=== PATIENT | female | born 1945 | race Caucasian/White ===

== ENCOUNTER → 2016-10-10 | Outpatient (CLI) | payer OTHER ==
[~2016-10-10] VITALS: Ht 160 cm; Wt 59.9 kg
[~2016-10-10] MED LIST: 5-HTP100 MG PO; ACIPHEX 20 MG T20 MG PO; ALPRAZOLAM 0.0.25 MG PO; ANALGESIC325 MG PO; ANASPAZ0.125 MG PO; ASPIRIN325 PO; ATIVAN0.5 MG PO; B COMPLEX-VITA1 EACH PO; BALANCED B-CO400 MCG PO; BENADRYL25 MG PO; BENTYL20 MG PO; BYSTOLIC 5 MG5 M1 PO; BYSTOLIC2.5 MG PO; CALCIUM 500 +1 EAC5 PO; CALCIUM500 MG PO; COQ-10100 MG PO; CRESTOR10 MG PO; CYMBALTA60 MG PO; DEPAKOTE250 MG; DILAUDID; DILAUDID 2 MG TA2 MG PO; DILAUDID2 MG PO; DIOVAN 80 MG TA80 M1 PO; DIOVAN160 MG PO; DIOVAN40 MG PO; FAMOTIDINE PO; FAMOTIDINE20 MG PO; FISH OIL 1,2001 EAC4 PO; FLAX SEED OIL1 EACH PO; FLEXERIL PO; FLONASE 0.05%50 MCG NASAL; FLUTICASONE; GABA PO; HYDRALAZINE 5050 M1 PO; HYDRALAZINE HC100 MG; HYDROCHLOROTH12.5 MG PO; HYDROCHLOROTHIA25 M2 PO; HYDROCHLOROTHIA50 MG PO; HYDROCODON-ACE1 EAC5 PO; HYDROCODON-ACE1 EAC8 PO; HYDROCODONE-AP1 EA11 PO; HYDROMORPHONE; HYSINGLA ER40 MG PO; IMITREX6 MG/0.5 M SQ; IMODIUM MULTI-1 EACH PO; INTRATHECAL MED; LEVAQUIN 750 M750 MG PO; LIDODERM; LIDODERM 5%1 PATC1 TRANSDERM; MEGA TAURINE1000 MG PO; METHIONINE; MULTI VITAMIN1 EACH; NORTRIPTYLINE H25 M3 PO; NORVASC5 MG PO; OMEGA 3-6-9 CO1 EACH PO; OMEGA-31000 M1 PO; ONDANSETRON HCL4 M2 PO; ONDANSETRON ODT4 MG PO; OXYCODONE-ACET1 EAC2 PO; OXYCODONE-ACET1 EACH PO; PAMELOR10 MG PO; PHENERGAN25 M2 RC; PLAVIX 75 MG TA75 M1 PO; PLAVIX PO; PREVALITE PACKE1 PKT PG; PROBIOTIC1 EAC2 PO; PROBIOTIC1 EACH PO; PROMETHAZINE12.5 M1 PO; PROTONIX40 M1 PO; RECLAST 55 MG/100 M IV; SAM E PO; SUMATRIPTA6 MG/0.53 SQ; TOPAMAX50 MG PO; TRAMADOL 50 MG50 MG PO; TRILIPIX135 MG PO; UBIQUINOL100 MG PO; UNICOMPLEX M TA1 TA1 PO; VAGIFEM10 MCG; VICOPROFEN 2001 EACH PO; VITAMIN B-121000 MC1 PO; VITAMIN D32000 UNIT PO; WELLBUTRIN 100100 M1 PO; XANAX 0.25 MG0.25 MG PO; XANAX XR1 MG PO; ZINC PICOLINATE PO; [UNRECOGNIZED DRUG - CODE] PO; curamin
--- NOTE | ~2016-10-10 | HPC ---
[facility] [place] [address] PAIN MANAGEMENT CONSULTATION Name: ANUM VICK Room #: REG [facility] M..#: [id number] Admission: 10/10/16 Attend Phys: Geoff Mcrae MD Discharge: Date of : 43 Report #: [id number] THIS REPORT FOR: //name// CC: Vivek Mcrae DATE OF SERVICE: 10/10/2016 Followup visit for chronic intractable pain. The patient returns to pain clinic today and she is having pain, I believe from several pain generators. She continues to have pain in her right hip, status post replacement of the hip. She is unhappy with the recovery and most of the pain in her hips seems to be soft tissue myofascial discomfort around the gluteal muscles in the area, lateral and anterior to the thigh and the calf or in the thigh. She has localized tenderness in a restricted motion. She also complains of pain in her back that radiates through her scar and also down into the same right hip. This pain radiates through the hip, thigh and into the calf and ankle may be radicular in nature. She has a third pain generator that of a fractured rib, which she sustained in a fall. She is a bit been stable here recently and is at fall risk. She has an intrathecal pump, which was providing a low dose of hydromorphone, maximum daily dose today prior to any changes was 1.2 mg per day. She does have a PTM device, which will allow her to increase slightly. Today, we discussed options for treatment. MEDICATIONS: Reviewed and reconciled from the electronic medical record. Her list is lengthy. Please review through the electronic record. ALLERGIES: Also reviewed on the electronic medical record from this encounter. PHYSICAL EXAMINATION: Her affect is a bit angry today. She is frustrated by her lack of progress following her hip surgery. She is able to move from sitting to standing position and ambulate with a stable gait. Her blood pressure is 152/90, heart rate 92, respirations 14, BMI is 23.4. Her chest is clear to auscultation and cardiac rhythm was regular. CHEST: Reveals tenderness along the right chest wall and tenderness of the ribcage posteriorly in lower rib, which appears to be slightly prominent. Part of this is due to dextrorotational curvature of the spine. She has tenderness all along the lengthy laminectomy scar. There is pain below and above. Straight leg raising in the seated position reproduces pain bilaterally in both legs, worse on the right. She has pain with movement of the right prosthetic hip with internal and external rotation. Weakness is noted with hip flexion and leg extension. Sensation is intact. [address] [address] PAIN MANAGEMENT CONSULTATION Name: ANUM VICK Room #: REG CARI Koch#: [id number] Admission: 10/10/16 Attend Phys: Geoff Mcrae MD Discharge: Date of : 43 Report #: [id number] IMPRESSION: Chronic intractable pain with multiple pain generators including right hip, low back, post-laminectomy syndrome with radiculopathy and right rib. PLAN: We have reviewed our options. At this time, I would like to increase her daily dose of hydrocodone which she tolerates well. She is currently taking roughly 30 mg a day, four 7.5 mg tablets. I would like her to try one of the long-acting hydrocodone preparations and recommended Hysingla ER 40 mg once daily. This has been an excellent medication for some of our patients who have been on round the clock scheduled doses of medication to help control pain. The prescription was provided and I told her that it may be difficult to get it covered by her insurance company and practically before I got to my desk, we received a notice back that the plan did not cover her medication and we needed to begin a prior authorization. This was initiated today before I left the office. I also increased her intrathecal infusion pump by roughly 6%. Her daily dose maximum will be 2.4 mg of hydromorphone including all PTM uses. We will follow up in about a month to see opioids helping. By: [id number] Geoff Mcrae MD /jamar
[2016-10-10 09:52] VITALS: BP 152/90
== END | disposition home or self-care (01) ==
LOC: PAIN 07:01
DX: G89.29 Other chronic pain (principal); M96.1 Postlaminectomy syndrome, not elsewhere classified

== ENCOUNTER → 2016-10-31 | Outpatient (CLI) | payer OTHER ==
[~2016-10-31] VITALS: Ht 160 cm; Wt 60.0 kg
--- NOTE | ~2016-10-31 | HPC ---
[facility] [place] [address] PAIN MANAGEMENT CONSULTATION Name: ANUM VICK Room #: REG [facility] M.Darshan.#: [id number] Admission: 10/31/16 Attend Phys: Geoff Mcrae MD Discharge: Date of : 43 Report #: [id number] THIS REPORT FOR: //name// CC: Vivek Mcrae DATE OF SERVICE: 10/31/2016 Followup visit for chronic intractable pain, refill of intrathecal infusion pump. The patient returns to pain clinic today for refill of her intrathecal infusion pump. She has been gaining some weight lately, but now we have discerned that it is the five 300-calorie candies per day that she has been eating from a special order out of [employer]. We discussed the importance of avoiding sugary foods. She has a severe gluten enteropathy. She ate salad dressing at a dinner recently and was hospitalized, developing severe abdominal pain. Treatment was symptomatic and it resolved and she was discharged with absent sequelae. She has ongoing chronic pain. Today, pain is described as right hip, although that is improving and she has pain across her mid to upper back. She says she has aches all over. Pain score is 5. It is worsened by walking and standing. MEDICATIONS: Cholecalciferol, Trilipix, Crestor, hydrocodone for breakthrough pain, calcium ondansetron, nortriptyline, cyclobenzaprine, valsartan, amlodipine, pantoprazole, lactobacillus, omega-3, multivitamins, Plavix, alprazolam, COQ10, p.r.n. Benadryl. PHYSICAL EXAMINATION: Pleasant, alert, and oriented. Weight is up. BMI is 23.4, blood pressure 142/86, heart rate 94. She has mid back tenderness, tenderness across her neck with decreased range of motion. Mild chest wall tenderness is noted. Pain in the hip is still present with flexion, extension, and internal rotation. PLAN: 1. Continue Hysingla 40 mg daily with breakthrough hydrocodone 7.5 mg 2-4 per day using lowest most effective dose. 2. Refilled intrathecal infusion pump, was reprogrammed. This is performed without complication. Her daily medication will be hydromorphone maximum of 2.4 mg a day with a total P.A. usage. Estimated NATALEE is 36 months. Her next refill is in [address] [place] [address] PAIN MANAGEMENT CONSULTATION Name: ANUM VICK Room #: REG CL August#: [id number] Admission: 10/31/16 Attend Phys: Geoff Mcrae MD Discharge: Date of : 43 Report #: [id number] Medications were prescribed. Terms of the opioid agreement were reviewed and she was discharged with a plan to see her in about 2 months. By: 1620 0000 Geoff Mcrae MD /jamar
[2016-10-31 12:48] VITALS: BP 142/86
== END | disposition home or self-care (01) ==
LOC: PAIN 07:15
DX: K90.0 Celiac disease (principal); Z87.891 Personal history of nicotine dependence

== ENCOUNTER → 2017-02-10 | Outpatient (CLI) | payer OTHER ==
[~2017-02-10] VITALS: Ht 160 cm; Wt 54.8 kg
[~2017-02-10] MED LIST changes: +XANAX1 MG PO
--- NOTE | ~2017-02-10 | HPC ---
[facility] [address] [place] [address] PAIN MANAGEMENT CONSULTATION Name: MALCOLMRAINAANUM ROQUE Room #: REG CARI Huizar.#: [id number] Admission: 02/10/17 Attend Phys: Geoff Mcrae MD Discharge: Date of : 43 Report #: [id number] THIS REPORT FOR: //name// CC: Vivek Mcrae DATE OF SERVICE: 02/10/2017 Followup visit for management of intrathecal infusion for chronic intractable abdominal pain. The patient returns to pain clinic today for refill of her intrathecal infusion pump. She is doing better. She has been in and out of the hospital this year, quite a bit for abdominal pain. Small section of bowel was resected. She has recovered from that surgery. Around the same time, I added to her intrathecal pump droperidol. She responded favorably to this and her nausea has been improved as well as pain control. I have slightly increased the droperidol in her pump for this infusion and will drop the dose of hydromorphone, so hopefully this will have an opioid sparing effect. She is here today with her . She reports that overall her pain intensity is better, but it various. Abdominal pain is less, although she has low back pain and overall aching and aching into her right hip. Today, she says she feels unsteady, but that is not a constant finding. Much of her pain is in the area of her hardware where it is locally tender. Oral medications have been reviewed and reconciled. We have tried Hysingla, but she would prefer instead use shorter acting medication which she can control. In place of the Hysingla 40 mg once a day, I will provide her with hydrocodone 7.5/325, #120, to be taken q. 6h. p.r.n. ADDITIONAL MEDICATIONS: Include pantoprazole, amlodipine, valsartan, lidocaine patches, calcium, nortriptyline, ondansetron p.r.n., alprazolam p.r.n. ALLERGIES: Reviewed and unchanged. PHYSICAL EXAMINATION: She is pleasant, alert and oriented. Does not appear to be in much distress today, her blood pressure 143/79, heart rate is 87. BMI is 21.4. Her abdomen is slightly tender. She moves easily from sitting to standing position. She ambulates without difficulty. She complains of pain across her low back and into her neck with flexion and extension. IMPRESSION: 1. Chronic intractable abdominal pain. 2. Diffuse skeletal pain generators including right hip, low back, post-laminectomy [place] [address] PAIN MANAGEMENT CONSULTATION Name: ANUM VICK Room #: REG [facility] August#: [id number] Admission: 02/10/17 Attend Phys: Geoff Mcrae MD Discharge: Date of : 43 Report #: [id number] 3. Management of oral high risk medication. 4. Management of intrathecal infusion pump with refill. PLAN: 1. I refilled her oral medication under terms of our agreement. 2. Refill of intrathecal infusion pump. PROCEDURE: Skin was prepped with ChloraPrep. Skin anesthetized and a 22-gauge non-coring needle advanced in the pump. Old medication removed and discarded. Pump was refilled with hydromorphone and droperidol. A reprogramming session performed. A 16% decrease in hydromorphone was achieved today to 1.1 mg/day, droperidol 27 mcg per day, a bridge bolus was programmed into the intrathecal pump. Her next refill is 88 days on 05/09/2017. Her NATALEE is 32 months. She was discharged with a copy of her programming information and a prescription. I will see her back in the clinic in roughly 3 months. Time spent with the patient in counseling and refill pump as well as prescribing medication 25 minutes. <ELECTRONICALLY SIGNED> By: Geoff Mcrae MD 02/13/17 1351 [id number] 0840 Geoff Mcrae MD /nt
[2017-02-10 10:08] VITALS: BP 143/79
== END ==
LOC: PAIN 07:00
DX: Z45.1 Encounter for adjustment and management of infusion pump (principal); R10.9 Unspecified abdominal pain; G89.29 Other chronic pain; M96.1 Postlaminectomy syndrome, not elsewhere classified; Z91.030 Bee allergy status; Z91.041 Radiographic dye allergy status; Z91.018 Allergy to other foods; Z91.013 Allergy to seafood; Z88.1 Allergy status to other antibiotic agents; Z91.048 Other nonmedicinal substance allergy status; Z79.891 Long term (current) use of opiate analgesic; Z87.891 Personal history of nicotine dependence; Z72.89 Other problems related to lifestyle

== ENCOUNTER → 2017-06-09 | Outpatient (CLI) | payer OTHER ==
[~2017-06-09] VITALS: Ht 160 cm; Wt 55.0 kg
[~2017-06-09] MED LIST changes: +CRESTOR20 MG PO
--- NOTE | ~2017-06-09 | HPC ---
[facility] [address] [place] [address] PAIN MANAGEMENT CONSULTATION Name: ANUM VICK Room #: REG [facility] M.Darshan.#: [id number] Admission: 06/09/17 Attend Phys: Geoff Mcrae MD Discharge: Date of : 43 Report #: [id number] THIS REPORT FOR: //name// CC: Vivek Mcrae DATE OF SERVICE: 06/09/2017 DATE OF REGISTRATION: 06/09/2017 Followup visit for management of chronic intractable pain and intrathecal infusion pump. She is here today for refill. The patient is here today for refill of her intrathecal infusion pump. She has had a number of different issues going on over the course of last year. Today, she reports that her pain is a 7. It is in her right leg, mostly with sharp, aching sensations, is worse in the morning, worse with standing. Intrathecal pump medication has been helpful. She does take some supplementary oral medications as well, which have been helpful from a systemic standpoint. She has had number of GI issues, so we are careful with those medicines. She uses hydrocodone 7.5 up to 4 times a day for a total MME of 30 per day. We discussed opioids, her opioid agreement, the opioid crisis, the CDC guidelines and the importance of safeguarding medication. The patient is not a fall risk. She has some osteoarthritis, which is noted throughout the spine and also in her joints, particularly right hip. She is status post hip replacement and is unhappy with replacement. She said she has continuing pain there. We discussed therapy at length. PHYSICAL EXAMINATION: She is little grumpy today, mostly complaining of her hip and feels that it was "botched." Her blood pressure is 119/72, heart rate 94. BMI is 21.5. She needs no counseling. She moves from a sitting to standing position on her own independently. She is not a fall risk. She has tenderness across her low back and also in her hip with internal and external rotation. She has weakness a bit in her right leg. IMPRESSION: 1. Chronic intractable pain with multiple skeletal pain generators and osteoarthritis. Status post right hip replacement with persistent pain. 2. Lumbar radiculopathy and post-laminectomy syndrome. 3. Chronic abdominal pain with nausea, intermittent. 4. Management of high risk oral medications under terms of an agreement. 5. Management of intrathecal infusion pump. PLAN: 1. Counseling was provided for 25 minutes today regarding the importance of [facility] [address] [place] [address] PAIN MANAGEMENT CONSULTATION Name: ANUM VICK Room #: REG CARI KiddSusy#: [id number] Admission: 06/09/17 Attend Phys: Geoff Mcrae MD Discharge: Date of : 43 Report #: [id number] exercise and strengthening for her right hip. I think this will help that pain. 2. We discussed her medications at length. 3. We reviewed other medications for treatment of side effects such as constipation. 4. Discussed her intrathecal pump management as well. 5. I refilled her intrathecal infusion pump. PROCEDURE: Skin was prepped with ChloraPrep. Skin anesthetized and a 22-gauge non-coring needle advanced in the pump. Old medication removed and discarded. Pump was refilled with hydromorphone, droperidol. Reprogramming session was performed. Daily dose will be at maximum with PTM, 1.5 mg of hydromorphone and 39 mcg per day with droperidol. Refill interval for the patient on this pump is about 52 days. Her next refill with maximum utilization will be some time in July. Usually it is about mid July. Total time spent 30 minutes. By: [id number] Geoff Mcrae MD /nt
[2017-06-09 10:00] VITALS: BP 119/72
== END | disposition home or self-care (01) ==
LOC: PAIN 07:05
DX: Z45.1 Encounter for adjustment and management of infusion pump (principal); G89.29 Other chronic pain; M54.16 Radiculopathy, lumbar region; M96.1 Postlaminectomy syndrome, not elsewhere classified; M47.9 Spondylosis, unspecified

== ENCOUNTER → 2017-08-13 | Outpatient (CLI) | payer OTHER ==
[~2017-08-13] VITALS: Ht 160 cm; Wt 52.9 kg
[~2017-08-13] MED LIST changes: +ANTIVERT25 MG; +INTRAROSA6.5 MG VAG; +IRBESARTAN150 MG PO; +METOPROLOL SUCC50 MG PO; +MYSOLINE50 MG PO; +PRESERVISION T1 EACH PO; +PROBIOTIC1 EAC1 PO; +PROZAC10 MG PO; +SAM-E400 MG PO; +STIOLTO RESPIMAT4 GM
--- NOTE | ~2017-08-13 | HPC ---
[facility] [address] [place] [address] PAIN MANAGEMENT CONSULTATION Name: NAVAVEENAJustin Fox Room #: REG [facility] M.Darshan.#: [id number] Admission: 08/13/17 Attend Phys: Geoff Mcrae MD Discharge: Date of : 43 Report #: [id number] THIS REPORT FOR: //name// CC: Vivek Mcrae DATE OF SERVICE: 08/13/2017 REASON FOR VISIT: Followup visit for chronic pain. HISTORY OF PRESENT ILLNESS: The patient returns to the pain clinic today for refill of intrathecal infusion pump as well as renewal of oral medication, which she takes in supplement. As the visit turns out, we still have about 3 weeks left in her Intrathecal pump refill and 9 mL remaining in her 20 mL pump. Her medication is good for another month and a half. I have rescheduled her to come back in the middle of August for refill and we will not refill her pump today. This will actually work out very well. She has an upcoming trip planned for [facility] and the refill date that will be upcoming. We will allow her to be gone without will have to worrying about her intrathecal pump refill. She felt that she did not have another refill on her breakthrough medication. I provided with hydrocodone 7.5/325 tablets, which she can use for breakthrough. She uses between 2 and 4 tablets a day, oftentimes up to 4 when the weather is bad. Much of this, she uses for her hip replacement pain, which has been persistent and has not been helped by intrathecal infusion pump. As we noted today, she has 1 more refill and she does need another refill today. I have reviewed her PQRS review today and she does have osteoarthritis of the lower extremities including hips and knees. She has had operative treatment. Her BMI is 20.7 normal for her. Her vital signs are stable. She has a mild diastolic hypertension and is followed by Dr. Vivek Powell. Pain intensity is a 5 today. She has a fall risk and has fallen in the last 3 months. She occasionally uses a cane and she was cautioned today. She is on a blood thinner, Plavix which makes falling and the fall risk even more concerning. Her functional assessment tool was not performed today but has been at the most recent visit. Opioid risk tool was reviewed. She is at moderate risk at 7/10, so we keep a close eye on her medications. She continues to drink alcohol a bit each day. She is a former smoker and can stop that habit. IMPRESSION: Chronic intractable pain with multiple pain generators. She suffers from a post total hip replacement syndrome with persistent pain there. She has lumbar radiculopathy, post-laminectomy. She has chronic abdominal pain [address] [address] PAIN MANAGEMENT CONSULTATION Name: ANUM VICK Room #: REG [facility] August#: [id number] Admission: 08/13/17 Attend Phys: Geoff Mcrae MD Discharge: Date of : 43 Report #: [id number] with nausea, which is intermittent. She has been managed by high risk medications under terms of written opioid agreement and an intrathecal infusion pump. PLAN: To follow up in the pain clinic in about 3 weeks and we will take care of her medication as well as refill of intrathecal infusion pump at that time. <ELECTRONICALLY SIGNED> By: Geoff Mcrae MD 08/20/17 1640 1529 04 Geoff Mcrae MD /nt
[2017-08-13 13:50] VITALS: BP 146/90
== END ==
LOC: PAIN 09:31
DX: G89.29 Other chronic pain (principal); M54.16 Radiculopathy, lumbar region; M96.1 Postlaminectomy syndrome, not elsewhere classified; R10.9 Unspecified abdominal pain; Z96.643 Presence of artificial hip joint, bilateral

== ENCOUNTER → 2017-08-25 | Outpatient (CLI) | payer OTHER | LOC: NUC 07:08 | DX: I25.10 Atherosclerotic heart disease of native coronary artery without angina pectoris (principal); R53.83 Other fatigue; I10 Essential (primary) hypertension; E78.5 Hyperlipidemia, unspecified; Z72.0 Tobacco use ==

== ENCOUNTER → 2017-09-01 | Outpatient (CLI) | payer OTHER ==
[~2017-09-01] VITALS: Ht 160 cm; Wt 52.4 kg
--- NOTE | ~2017-09-01 | HPC ---
[facility] [place] [address] PAIN MANAGEMENT CONSULTATION Name: MALCOLMRAINAANUM ROQUE Room #: REG CARI Huizar.#: [id number] Admission: 09/01/17 Attend Phys: Geoff Mcrae MD Discharge: Date of : 43 Report #: [id number] THIS REPORT FOR: //name// CC: Vivek Mcrae DATE OF SERVICE: 09/01/2017 Followup visit for management of chronic intractable cervical pain, osteoarthritis, status post hip replacement with persistent pain. The patient returns to pain clinic today for followup. Her intrathecal pump is infusing hydromorphone low dose with droperidol. She has done well, but would like to have small increase. I have agreed to increase her daily dose by about 8%. She has a PTM device uses as well. In addition to her intrathecal medication which were managing carefully, she has found that she benefits from a supplemental dose of a small amount of hydrocodone which I provide for her under terms of our written opioid agreement. She is allowed 90 tablets over a course of 1 month. She takes them effectively without side effects to safeguard her medication and recent urine drug screens have been performed. I will repeat a buccal screen today as it has been some time. I have no suspicion that she is misusing or abusing her medication. She has always been on time with her medication. She and her travel extensively and have the means to do so. She will be traveling first class to [facility] soon. Unfortunately, she will be leaving before her due date for her next prescription and would run out of her oral medication while on trip. I have agreed to provide a medication release date earlier and have notified the pharmacist on the prescription that she will be receiving her medication in schedule but early for her due to her flight plans. PHYSICAL EXAMINATION: She is pleasant, alert and oriented. She shows no signs of depression, anxiety or overmedication. She is 5 feet 3 inches with a BMI of 20.5. Her chest is clear. Her abdomen is soft. Her cardiac rhythm is regular. Her vital signs: Blood pressure 113/68, heart rate 85, respirations 16. She has decreased range of motion of the cervical spine. The patient's pain intensity today is a 5/10. She is a fall risk and has fallen once in the last 3 months and occasionally uses a cane. She needs to be cautious due to her use of Plavix. She is also under treatment for hypertension. I have reviewed our opioid agreement risk assessment tool and functional assessment tool. She is at some risk for abuse with a score of 8/10[place] [address] PAIN MANAGEMENT CONSULTATION Name: MALCOLMDILIAANUM Room #: REG [facility] August#: [id number] Admission: 09/01/17 Attend Phys: Geoff Mcrae MD Discharge: Date of : 43 Report #: [id number] Should note that her pain impact score is down to 29 and she reports an 85% improvement in her pain overall since beginning the combination of intrathecal and oral therapies. IMPRESSION: Chronic intractable pain with multiple pain generators including neck pain, status post cervical fusion and hip pain status post replacement. She has lumbar radiculopathy as well. She has had a chronic abdominal pain and nausea, which has been well managed recently. No hospitalizations. PLAN: Refill intrathecal infusion pump and refill new medication under terms of our written opioid agreement. We talked about the CDC guidelines and the opioid crisis today as we have over the last year or 2, so that she understands the importance of safeguarding all her medication. PROCEDURE: She was placed in sitting position. Skin was prepped with ChloraPrep. Skin anesthetized and a 22-gauge non-coring needle advanced into the pump. Old medication was removed and discarded. Volumes were appropriate. Pump was refilled with a combination of hydromorphone and droperidol and a daily dose was increased from 1.1 mg of hydromorphone per day to 1.2. Her PTM was also reprogrammed. Total time in the office 25 minutes. Her next refill date is 10/23/2017 with all PTM options, but generally, this is about a month later. I plan to see her towards the end of October or early November. <ELECTRONICALLY SIGNED> By: Geoff Mcrae MD 09/29/17 1408 1313 1518 Geoff Mcrae MD /nt
[2017-09-01 09:45] VITALS: BP 113/68
== END | disposition home or self-care (01) ==
LOC: PAIN 07:13
DX: Z45.2 Encounter for adjustment and management of vascular access device (principal); G89.29 Other chronic pain; M54.16 Radiculopathy, lumbar region; Z87.891 Personal history of nicotine dependence

== ENCOUNTER → 2017-12-01 | Outpatient (CLI) | payer OTHER ==
[~2017-12-01] VITALS: Ht 160 cm; Wt 50.1 kg
[~2017-12-01] MED LIST changes: -INTRAROSA6.5 MG VAG; -IRBESARTAN150 MG PO; -PRESERVISION T1 EACH PO; -PROBIOTIC1 EAC1 PO; -PROZAC10 MG PO; -STIOLTO RESPIMAT4 GM
--- NOTE | ~2017-12-01 | HPC ---
[facility] [place] [address] PAIN MANAGEMENT CONSULTATION Name: NAVAANUM Room #: REG CARI Huizar.#: [id number] Admission: 12/01/17 Attend Phys: Geoff Mcrae MD Discharge: Date of : 43 Report #: [id number] THIS REPORT FOR: //name// CC: Vivek Mcrae DATE OF SERVICE: 12/01/2017 Followup visit for chronic intractable pain and management of intrathecal infusion pump. The patient returns to pain clinic today for renewal of her intrathecal pump medication. She complains of pain in the neck, back and hip. She had a hip replacement, but has had some persistent post arthroplasty oftentimes questioning whether she should have performed the procedure. I reassured her that her arthritic hip would have likely progressed to what have been worse. She describes her pain today as a 7/10, worse with walking and standing, it is worse in the morning and the hip is generally worse after activities as well. She has midline pain in her thoracic spine, roughly T4-T6 in the bra line, this is fairly stable. In addition to medication, she uses heat and repositioning to aid her pain control efforts. She and her , Guido have a trip planned to [place] in February and we talked a little bit about the timing of her next refill so that she will not have to worry about running out of medication on that trip in early February. Her pump is infusing hydromorphone and droperidol. She still has a bit of nausea and I have agreed that I will increase her droperidol at the next refill. PQRS review shows that she has some history of osteoarthritis, particularly of the lower extremities having had a total hip replacement. No other joints are quite so painful. She has a BMI of 19.6, which is normal for her. She is treated for hypertension with medication by Dr. Powell and is on Plavix. She is not a fall risk at this time and has not fallen within the last 3 months. She has completed an opioid risk tool and is at high risk, but has shown no misuse or abuse of the oral medications provided. She is an ex-smoker and continues to drink vodka daily. PHYSICAL EXAMINATION: GENERAL: Pleasant, alert and oriented. VITAL SIGNS: Blood pressure 135/67, heart rate 82, respirations 14, BMI as noted 19.6. EXTREMITIES: She has some tenderness about her neck. She has pain in the right [facility] [address] [place] [address] PAIN MANAGEMENT CONSULTATION Name: ANUM VICK Room #: REG [facility]#: [id number] Admission: 12/01/17 Attend Phys: Geoff Mcrae MD Discharge: Date of : 43 Report #: [id number] hip with internal and external rotation. She walks with a slight antalgic gait. She has positive straight leg raising bilaterally in the lower extremities with consistent radiculopathy. Tenderness in the thoracic spine is noted as well. Lumbar range of motion is reduced in flexion and extension. IMPRESSION: 1. Chronic intractable pain with multiple pain generators including chronic cervicalgia, status post fusion, osteoarthritis with pain in the right hip, status post replacement, history of lumbar spondylosis with lumbar radiculopathy and chronic abdominal pain. 2. Management of intrathecal infusion pump with refill and reprogram. 3. Management of oral medication for supplement. She uses a small amount of [place], generally not more than 20 morphine milligram equivalents a day or 2-3 [place] 7.5/325 tablets. PROCEDURE: Refill and reprogramming of intrathecal infusion pump. DESCRIPTION OF PROCEDURE: Skin was prepped with ChloraPrep and anesthetized. A 22-gauge non-coring needle advanced in the intrathecal pump. Old medication removed and discarded. We expected 3.1 mL. We retrieved about 3.5 consistent with reasonable delivery. Pump was refilled then with a combination of hydromorphone and droperidol. Reprogramming session was performed with no changes. She has a PTM device. Maximum daily doses with the PTM if she uses all of her available doses are hydromorphone 2.6 and droperidol 67 mcg per day. Followup visit is planned in late January prior to her trip to [facility]. I will increase her droperidol by roughly 15% at the next pump refill. By: [id number] Geoff Mcrae MD /nt
[2017-12-01 09:52] VITALS: BP 135/67
== END ==
LOC: PAIN 11-13 08:39
DX: Z45.1 Encounter for adjustment and management of infusion pump (principal); M16.11 Unilateral primary osteoarthritis, right hip; M54.2 Cervicalgia; G89.29 Other chronic pain; M47.26 Other spondylosis with radiculopathy, lumbar region; I10 Essential (primary) hypertension; I25.10 Atherosclerotic heart disease of native coronary artery without angina pectoris; R10.9 Unspecified abdominal pain; Z87.891 Personal history of nicotine dependence; Z91.041 Radiographic dye allergy status; Z88.8 Allergy status to other drugs, medicaments and biological substances; Z79.891 Long term (current) use of opiate analgesic; Z98.890 Other specified postprocedural states; Z96.641 Presence of right artificial hip joint

== ENCOUNTER → 2018-02-05 | Outpatient (CLI) | payer OTHER ==
[~2018-02-05] VITALS: Ht 160 cm; Wt 50.6 kg
[~2018-02-05] MED LIST changes: +INTRAROSA6.5 MG VAG; +IRBESARTAN150 MG PO; +PRESERVISION T1 EACH PO; +STIOLTO RESPIMAT4 GM
--- NOTE | ~2018-02-05 | HPC ---
[facility] [address] [place] [address] PAIN MANAGEMENT CONSULTATION Name: ANUM VICK Room #: REG [facility] M..#: [id number] Admission: 02/05/18 Attend Phys: Geoff Mcrae MD Discharge: Date of : 43 Report #: [id number] THIS REPORT FOR: //name// CC: Vivek Mcrae DATE OF SERVICE: 02/05/2018 REASON FOR VISIT: Followup visit for management of intrathecal infusion pump for chronic pain. HISTORY OF PRESENT ILLNESS: The patient returns to the Pain Clinic today for refill of her pump. We have decided to postpone the pump refill 1 week. She has enough medications to get her through until a week from tomorrow. We took the opportunity to review her medications. She has had medication prescribed in previous visits and has one prescription remaining at home. She has been using less [place] for breakthrough, taking no more than 2-3 tablets a day, many days 2. We will modify her prescription downward, we find that she is using less. She has an upcoming trip coming [place] with her and we want to make sure that we time her pump refill appropriately so that she does not run out of medications on a trip, both oral and intrathecal. She is doing well, grateful for the relief she gets from both her medication, oral and the intrathecal pump. She is able to provide for all of her self-care. She can drive a car without difficulty. She denies any side effects other than mild constipation. PQRS REVIEWS: Slender female with a BMI of 19.8, blood pressure 116/66, heart rate 82, respirations 14. Her pain intensity of 5/10. She has fallen once in the last several months, but does not need a cane or a walker. She would be considered fall risk and this is concerning since she is on Plavix. She has a history of hypertension. An opioid risk tool score showing that she has at high risks of misuse of medications, so we keep a closer eye on her medications. Her ORT score was 8. She has had no red flag behaviors. We have reviewed her medication prescriptions on the [place] [employer] PDMP and all medications are appropriate regarding oral medications. She is now on hydrocodone 7.5/325 and as noted, she is taking less than prescribed, so this suggests the intrathecal pump is working well. PHYSICAL EXAMINATION: GENERAL: She is pleasant, alert and oriented, without any signs of overmedication. [facility] [address] [place] [address] PAIN MANAGEMENT CONSULTATION Name: ANUM VICK Room #: REG [facility]#: [id number] Admission: 02/05/18 Attend Phys: Geoff Mcrae MD Discharge: Date of : 43 Report #: [id number] MUSCULOSKELETAL: She has pain across her back and tenderness in the lumbosacral segment. There is some straight leg raising discomfort. She has some limited range of motion in her cervical spine from previous neck surgery. IMPRESSION: Chronic intractable pain. RECOMMENDATIONS: 1. Return to the Pain Clinic in 1 week for refill of intrathecal pump. 2. Go home and look for medication. A prescription, which she believes that she may have misplaced. We did receive a phone call from her after she returned home and located in her next prescription. We will score up of her prescriptions for 3 months at her next visit. By: [id number] Geoff Mcrae MD /nt
[2018-02-05 10:33] VITALS: BP 116/66
== END ==
LOC: PAIN 07:15
DX: M54.5 Low back pain (principal); G89.4 Chronic pain syndrome; Z79.899 Other long term (current) drug therapy

== ENCOUNTER → 2018-02-12 | Outpatient (CLI) | payer OTHER ==
[~2018-02-12] VITALS: Ht 160 cm; Wt 52.3 kg
--- NOTE | ~2018-02-12 | HPC ---
[facility] [place] [address] [place] [address] PAIN MANAGEMENT CONSULTATION Name: ANUM VICK Room #: REG [facility]..#: [id number] Admission: 02/12/18 Attend Phys: Geoff Mcrae MD Discharge: Date of : 43 Report #: [id number] THIS REPORT FOR: //name// CC: Vivek Mcrae DATE OF SERVICE: 02/12/2018 Followup visit for management of intrathecal infusion pump. The patient returns to clinic today. She was last seen just a week ago on 02/05/2018. We had her postpone her pump refill so that we could utilize the additional medicine that was remaining in her pump and she is now down to 3.5 mL. This will give her a longer period between refills and we will ensure that she can get to her overseas trip and back. I also will renew her medications that she takes to supplement her pump today under her written opioid agreement. She reports there have been no significant changes in the last week. Please refer to the dictation of 02/05/2018. IMPRESSION: Chronic intractable pain with multiple pain generators; these include cervicalgia status post fusion, osteoarthritis in the right hip, status post replacement, chronic lumbar spondylosis pain with backache and radiculopathy. Management of intrathecal infusion pump. Oral medication renewal. I provided with [place] 7.5/325, 90 tablets, which generally will last her at least a full month, her MME between 20 and 30. PROCEDURE: Skin was prepped with ChloraPrep. Skin anesthetized and a 22-gauge non-coring needle advanced in the pump. Old medication removed and discarded. Pump was refilled with hydromorphone and droperidol. We increased the droperidol dose by roughly 20% in the recipe. We have also elected to slightly increase her overall infusion. Thus, we will increase her droperidol from about 30 mcg per day to 43 mcg per day and her Dilaudid from 1.2 mg a day to 1.4 mg per day. Refill date if she uses all of her PTM opportunities will be around 04/04/2018. Typically, this goes out at least a week. She understands this and we will keep track of it with the dates that are available on the PTM device. I wished her good vacation. She was discharged and I will see her in March. By: [id number] Geoff Mcrae MD /nt
[2018-02-12 09:46] VITALS: BP 150/78
== END | disposition home or self-care (01) ==
LOC: PAIN 07:25
DX: Z45.1 Encounter for adjustment and management of infusion pump (principal); G89.29 Other chronic pain; M54.2 Cervicalgia; M16.11 Unilateral primary osteoarthritis, right hip; M47.26 Other spondylosis with radiculopathy, lumbar region; I10 Essential (primary) hypertension; I25.10 Atherosclerotic heart disease of native coronary artery without angina pectoris; Z87.891 Personal history of nicotine dependence; Z91.041 Radiographic dye allergy status; Z88.8 Allergy status to other drugs, medicaments and biological substances; Z79.899 Other long term (current) drug therapy; Z79.891 Long term (current) use of opiate analgesic; Z98.890 Other specified postprocedural states

== ENCOUNTER → 2018-04-27 | Outpatient (CLI) | payer OTHER ==
[~2018-04-27] VITALS: Ht 160 cm; Wt 51.3 kg
[~2018-04-27] MED LIST changes: +PROBIOTIC1 EAC1 PO; +PROZAC10 MG PO
--- NOTE | ~2018-04-27 | HPC ---
[facility] [place] [address] PAIN MANAGEMENT CONSULTATION Name: ANUM VICK Room #: REG [facility] M.R.#: [id number] Admission: 04/27/18 Attend Phys: Geoff Mcrae MD Discharge: Date of : 43 Report #: [id number] THIS REPORT FOR: //name// CC: Vivek Mcrae DATE OF SERVICE: 04/27/2018 Followup visit for chronic post-laminectomy syndrome and management of intrathecal infusion pump. The patient returns to pain clinic today for refill and reprogramming of her intrathecal infusion pump. She is doing well. In addition to her intrathecal pump, we have provided her with some systemic opioid medication, but she brought back her last prescription because she did not use it. She is using 1-2 hydrocodone 7.5 three tablets a day if necessary. Her maximum daily oral hydrocodone use is about 15 mg or 15 MME. Overall, she feels that her pain medication is adequate in the pump. She will need a new pump sometime within the next 2 years. Remarkable, this will be her third pump. The medication has worked fairly effectively to keep her active without significant side effects. She is a longstanding patient with chronic pain, complaining of pain in multiple locations including a right hip, status post hip replacement, chronic low back pain status post laminectomy, pain between the shoulders and neck. She scores it as 7/10, exacerbated with walking and standing. She has been able to remain fairly active. MEDICATIONS: Reviewed and reconciled. She is on no blood thinning medications. She is on medication for blood pressure control and follows closely with Dr. Powell. All of her medications are prescribed by Dr. Powell except those in the pump as well as her low dose hydrocodone. She is not currently a fall risk and has not fallen in the last 3 months. She continues to drink alcohol in a social setting with her , but is no longer a smoker. She is on Plavix for history of vasculopathy including the right renal artery stent placement. She follows with Dr. Walsh. She has sleep apnea and uses CPAP machine at night. Her chronic abdominal pain syndrome with celiac disease has been stable for some time. PHYSICAL EXAMINATION: VITAL SIGNS: Her blood pressure 137/74, heart rate 81. BMI is 20.10. GENERAL: She is alert, oriented, pleasant, no signs of depression or anxiety. MUSCULOSKELETAL: Examination of the spine reveals localized tenderness. She has a mild antalgic gait. She is well dressed today and walks down the [facility] [address] [place] [address] PAIN MANAGEMENT CONSULTATION Name: ANUM VICK Room #: [facility]#: [id number] Admission: 04/27/18 Attend Phys: Geoff Mcrae MD Discharge: Date of : 43 Report #: [id number] with minimal discomfort. She has some limited range of motion of the lumbar spine. Straight leg raising bilaterally is painful. She has ongoing or remaining tenderness around the hip replaced in 2017. IMPRESSION: 1. Chronic intractable pain with multiple pain generators. 2. Management of intrathecal infusion pump with refill and reprogramming session. PROCEDURE: Skin was prepped with ChloraPrep and anesthetized. A 22-gauge non-coring needle advanced in the pump. Old medication removed and discarded. Pump was then refilled with a combination of hydromorphone and droperidol and a reprogramming session was performed. Her daily dose at discharge per pump settings is hydromorphone 1.4 mg per day and droperidol 43.78 mcg per day. Maximum PTM will allow her to increase this by 100%. Her NATALEE is 10/2019 and her next scheduled refill is 06/15, but with PTM she should be able to push this into early June. I will see her back at that time. Under terms of our written agreement, I provided her with hydrocodone 7.5/325, #60 tablets with 2 release date prescriptions, one for 30 days, which should carry her through to her next appointment. Followup visit planned in June. By: [id number] Geoff Mcrae MD /nt
[2018-04-27 13:36] VITALS: BP 137/74
== END | disposition home or self-care (01) ==
LOC: PAIN 06:58
DX: Z45.1 Encounter for adjustment and management of infusion pump (principal); M96.1 Postlaminectomy syndrome, not elsewhere classified; G89.29 Other chronic pain; I10 Essential (primary) hypertension; I25.10 Atherosclerotic heart disease of native coronary artery without angina pectoris; Z88.8 Allergy status to other drugs, medicaments and biological substances; G47.33 Obstructive sleep apnea (adult) (pediatric); Z91.041 Radiographic dye allergy status; Z87.891 Personal history of nicotine dependence; Z79.891 Long term (current) use of opiate analgesic; Z79.899 Other long term (current) drug therapy; Z98.890 Other specified postprocedural states

== ENCOUNTER → 2018-06-29 | Outpatient (CLI) | payer OTHER ==
[~2018-06-29] VITALS: Ht 160 cm; Wt 51.7 kg
--- NOTE | ~2018-06-29 | HPC ---
[facility] [place] [address] PAIN MANAGEMENT CONSULTATION Name: MALCOLMRAINAANUM ROQUE Room #: REG [facility] M.Darshan.#: [id number] Admission: 06/29/18 Attend Phys: Geoff Mcrae MD Discharge: Date of : 43 Report #: [id number] THIS REPORT FOR: //name// CC: SOUMYA Mcrae DATE OF SERVICE: 06/29/2018 Followup visit for chronic low back pain and right hip pain status post right hip replacement. There patient was here today for pain management and refill of her intrathecal infusion pump. She and her , Gregory, have an upcoming trip planned and they travel frequently. I believe she said that she was leaving for [facility] on this trip and will be gone for 1 week. Her intrathecal infusion pump contains hydromorphone and droperidol, which has worked effectively. Her daily dose of hydromorphone is 1.4 mg per day. She has a PTM bolus device that she has been trying to use, but she reports that it is only providing 1 additional dose per day well under the 4 that were to have been allowed. This was a programming issue and did not involve the device itself. Nonetheless, we replaced her device and we reprogramed for the appropriate 4 additional bolus doses, which will increase her dose by 40% per day if necessary. In addition to her intrathecal medication, which works fairly well, she is allowed hydrocodone 7.5/325 to supplement the pump when systemic medication is necessary. It provides relaxing sedating effect in addition and seems to be of benefit, particularly during evening hours. PQRS REVIEW: 1. She has a history of osteoarthritis and has had a right hip replacement, continuing to complain of some pain despite long recovery. She likely has a chronic syndrome. 2. Weight is currently well controlled and she has not had problems with abdominal pain or nausea. BMI 20.2. 3. Pain intensity reported as 6/10. She is functioning highly within a functional assessment tool of 35/70. 4. She is not a fall risk, but she has had some lightheadedness and did fall once in the last 3 months. She should be cautious getting up and down due to risks of fall with Plavix. 5. She is on an opioid agreement, which has been reviewed at each visit. We discussed her the important aspects, particularly safeguarding medication. She no longer smokes, but drinks alcohol in a social setting. She was cautioned about combination of opioids and alcohol. [facility] [address] [place] [address] PAIN MANAGEMENT CONSULTATION Name: ANUM VICK Room #: REG [facility]#: [id number] Admission: 06/29/18 Attend Phys: Geoff Mcrae MD Discharge: Date of : 43 Report #: [id number] PHYSICAL EXAMINATION: Blood pressure 168/87, heart rate 94, respirations 16. She is pleasant, alert and oriented. No signs of overmedication. She can move easily from sitting to standing position with no lightheadedness or dizziness and her gait is slow, but stable. She has limited range of motion of the lumbar spine with tenderness along her scar. She has some straight leg raising tenderness and discomfort, but mostly it actually is in the hip from her previous hip replacement, which remains painful. IMPRESSION: 1. Chronic intractable pain, post-laminectomy syndrome. 2. Chronic hip pain status post total hip replacement. 3. Management of chronic opioids under terms of written agreement. Her use is modest and her MME is maximum of 15 per day. 4. Refill and reprogramming of intrathecal infusion pump. PROCEDURE: Skin was prepped with ChloraPrep and a 22-gauge non-coring needle advanced at first attempt into the pump. Old medication removed and discarded per protocol and the pump was refilled with hydromorphone, droperidol. Reprogramming session performed and I increased her basal rate in the absence of her PTM to 1.8 mg day, 28.5 basal rate increase. This is similar to the amount that she was using with her PTM. Her NATALEE is 70 months and she will need a new pump at that time. Next refill is scheduled before 08/22/2018. By: [id number] Geoff Mcrae MD /jamar
[2018-06-29 13:26] VITALS: BP 168/87
--- NOTE | 2018-06-29 13:41 | NUR ---
Pain Clinic Assessment: 1. History of Osteoarthritis: Right Lower Extremity History of Rheumatoid Arthritis: Not Applicable 2. Height: 5 ft. 3 in. 160.0 cm. Weight: 114.0 lb. oz. 51.710 kg. Patient's BMI: 20.2 3. Vital Signs: BP: 168/87 Pulse: 94 Resp: 16 Temp: 02 Sat: 99 ECG Mon: 4. Pain Intensity: 6 5. Fall Risk: Dizziness: Y Needs help standing or walking: N Fallen in the last 3 months: Y Fall risk comments: 6. Patient on Blood Thinner: Clopidogrel Bisulf(Plavix 7. History of Hypertension: Y 8. Opioid Therapy greater than 6 weeks: Y Opiate Contract Signed: 12/04/15 9. Risk Assessment Tool Provided: 8-high risk 10. Functional Assessment Tool: 11. Recreational Drug Use: Never Drug Type: Tobacco Use: Former Smoker Tobacco Type: Amount or Packs/day: How Many Years: Alcohol Use: Yes Frequency: Quant:
== END | disposition home or self-care (01) ==
LOC: PAIN 07:39
DX: Z45.1 Encounter for adjustment and management of infusion pump (principal); G89.29 Other chronic pain; I10 Essential (primary) hypertension; I25.10 Atherosclerotic heart disease of native coronary artery without angina pectoris; Z91.041 Radiographic dye allergy status; Z87.891 Personal history of nicotine dependence; Z88.8 Allergy status to other drugs, medicaments and biological substances; Z79.899 Other long term (current) drug therapy; Z98.890 Other specified postprocedural states; Z79.891 Long term (current) use of opiate analgesic

== ENCOUNTER → 2018-08-31 | Outpatient (CLI) | payer OTHER ==
[~2018-08-31] VITALS: Ht 160 cm; Wt 51.2 kg
[~2018-08-31] MED LIST changes: +NEURONTIN 300300 M1 PO
--- NOTE | ~2018-08-31 | HPC ---
[facility] [place] [address] PAIN MANAGEMENT CONSULTATION Name: ANUM VICK Room #: REG [facility] M.Darshan.#: [id number] Admission: 08/31/18 ������������������ Attend Phys: Geoff Mcrae MD Discharge: ������������������ Date of : 43 Report #: [id number] THIS REPORT FOR: //name// CC: Jeffy Mcrae DATE OF SERVICE: 08/31/2018 Followup visit for chronic intractable pain with intrathecal infusion pump management. The patient returns to the pain clinic today with her , Gregory. She is here today for refill of her intrathecal pump and small adjustment. She was hospitalized in June. She has made some progress over the course of the last month. She is getting a bit stronger and is doing physical therapy. She had a fall on 07/13. She suffered a left hip fracture and high femur fracture. Today, she reports her pain score is a 6/10. It is made worse with walking and standing and generally is worse in the morning. She gets relief from her medication. Her intrathecal pump repositioning and has been using some heat. PQRS review is positive for history of osteoarthritis. She has had a left hip replacement and has had changes of spondylosis throughout the cervical and lumbar spine. All medications were reviewed and reconciled including those prescribed by Dr. oPwell and myself. She is on an opioid agreement. There have been no unexpected entries on the prescription drug monitoring program, although she did receive recently prescription from Dr. Powell when I was unable to provide that for her. I described the agreement is an open one as long as communication is made between primary care physician and provider of chronic medication. We have noted in the record his prescription and does not constitute a violation. She has a risk assessment tool, however, that score is at 8/10, which is a relative high risk for addiction, and we must be careful and cautious in prescribing going forward. She continues to drink alcohol, which may have played a role in her fall. She is a former smoker. PHYSICAL EXAMINATION: She is pleasant. Her color is good. Blood pressure is 155/91, heart rate 76, respirations 14, O2 sat 97, BMI 20. She moves independently from sitting to standing position, ambulates with unsteady gait. CHEST: Clear. CARDIAC: Rhythm is regular. EXTREMITIES: Her left hip is tender to the touch, and she has decreased range of motion. IMPRESSION: [facility] [address] [place] [address] PAIN MANAGEMENT CONSULTATION Name: ANUM VICK Room #: REG [facility]#: [id number] Admission: 08/31/18 ������������������ Attend Phys: Geoff Mcrae MD Discharge: ������������������ Date of : 43 Report #: [id number] 1. Chronic intractable pain with multiple pain generators. 2. Recent fall with hip fracture. 3. Management of intrathecal infusion pump with refill and reprogramming. 4. Management of high risk medications. PROCEDURE: Skin was prepped with ChloraPrep and anesthetized. A 22-gauge non-coring needle advanced into the intrathecal pump. Old medication removed and discarded. Pump was refilled with hydromorphone and droperidol. Daily dose will be hydromorphone 2.0 mg, droperidol 62 mcg. Reprogramming session has her next refill at 10/16/2018. I did increase her dose today by 10%. She has a PTM device that will allow her 4 additional doses per day, which she will use as needed in addition to her oral medication. We reviewed our opioid agreement. She will safeguard her medications and use her oral medication only as needed. Hopefully, dropping her hydrocodone usage over the next month as she slowly weans herself back down to baseline levels. A second prescription was written for next month at a lower level. ��������������������������������������������� ���������������������������������������� By: ��������������������������������������������� [id number] Geoff Mcrae MD /nt
[2018-08-31 09:51] VITALS: BP 155/91
--- NOTE | 2018-08-31 10:01 | NUR ---
Pain Clinic Assessment: 1. History of Osteoarthritis: Right Lower Extremity History of Rheumatoid Arthritis: Not Applicable 2. Height: 5 ft. 3 in. 160.0 cm. Weight: 112.8 lb. oz. 51.166 kg. Patient's BMI: 20.0 3. Vital Signs: BP: 155/91 Pulse: 76 Resp: 14 Temp: 02 Sat: 97 ECG Mon: 4. Pain Intensity: 6 5. Fall Risk: Dizziness: Y Needs help standing or walking: Y Fallen in the last 3 months: Y Fall risk comments: 6. Patient on Blood Thinner: Clopidogrel Bisulf(Plavix 7. History of Hypertension: Y 8. Opioid Therapy greater than 6 weeks: Y Opiate Contract Signed: 12/04/15 9. Risk Assessment Tool Provided: 8-high risk 10. Functional Assessment Tool: 11. Recreational Drug Use: Never Drug Type: Tobacco Use: Former Smoker Tobacco Type: Amount or Packs/day: How Many Years: Alcohol Use: Yes Frequency: Daily Quant: 1
== END | disposition home or self-care (01) ==
LOC: PAIN 08-24 11:57
DX: Z45.1 Encounter for adjustment and management of infusion pump (principal); G89.29 Other chronic pain; I10 Essential (primary) hypertension; I25.10 Atherosclerotic heart disease of native coronary artery without angina pectoris; M19.90 Unspecified osteoarthritis, unspecified site; Z98.890 Other specified postprocedural states; Z79.891 Long term (current) use of opiate analgesic; Z79.899 Other long term (current) drug therapy; Z96.642 Presence of left artificial hip joint; Z87.891 Personal history of nicotine dependence; Z91.041 Radiographic dye allergy status; Z88.8 Allergy status to other drugs, medicaments and biological substances

== ENCOUNTER → 2018-10-22 | Outpatient (CLI) | payer OTHER ==
[~2018-10-22] VITALS: Ht 160 cm; Wt 51.7 kg
[~2018-10-22] MED LIST changes: +LIORESAL 10 MG10 MG PO; +ONDANSETRON ODT8 MG PO
--- NOTE | ~2018-10-22 | HPC ---
[facility] [place] [address] PAIN MANAGEMENT CONSULTATION Name: MALCOLMRAINAANUM ROQUE Room #: REG [facility] M.Darshan.#: [id number] Admission: 10/22/18 ������������������ Attend Phys: Geoff Mcrae MD Discharge: ������������������ Date of : 43 Report #: [id number] THIS REPORT FOR: //name// CC: Vivek Mcrae DATE OF SERVICE: 10/22/2018 CHIEF COMPLAINT: Followup visit for chronic intractable pain, multiple pain generators, management of intrathecal infusion pump as well as management of oral opioid for breakthrough. It is a return visit to the Pain Clinic for this patient who is here to have her intrathecal pump refilled. She currently is receiving a combination of hydromorphone 2 mg a day in addition to the droperidol 62.5 mcg per day. Her nausea is well controlled. Her pain is doing fine. She does have chronic pain and she complains bitterly about changes in weather, particularly low fronts, Fi[place]'s weather, which all seems to exacerbate her pain. Today, her pain is an 8/10. Average daily pain is somewhere between 4-6. PQRS REVIEW: Shows that she has osteoarthritis. She has a history of joint replacement. Right hip continues to be painful following replacement. Weight is controlled. BMI 20.2 and stable. Pain intensity 8/10, highly functional with a functional assessment score tool rating of 40. She is not a fall risk. She is on Plavix. She continues on an opioid agreement and follows it carefully. She safeguards her medication. She drinks alcohol and has been cautioned about the use of alcohol and opioids. This may have contributed to an incident in the fall. PHYSICAL EXAMINATION: GENERAL: She is pleasant, chilling a little bit today in the cold damp weather. VITAL SIGNS: Her blood pressure is 161/93, heart rate 77, respirations 16. EXTREMITIES: She can independently move from sitting to standing position. Her gait is antalgic. She has pain across her low back, tenderness in the left hip. There is decreased range of motion there. Scar across her back is nontender. She has her pump in the right lower abdomen, it is nontender. IMPRESSION: 1. Chronic intractable pain, multiple pain generators including osteoarthritis and post-laminectomy syndrome. 2. Management of intrathecal infusion pump. 3. Management of oral medication under terms of a written agreement. PROCEDURE: Refill and reprogramming of intrathecal infusion pump. [facility] [address] [place] [address] PAIN MANAGEMENT CONSULTATION Name: ANUM VICK [facility] [id number] Admission: 10/22/18 ������������������ Attend Phys: Geoff Mcrae MD Discharge: ������������������ Date of : 43 Report #: [id number] Skin was prepped with ChloraPrep. A 22-gauge non-coring needle advanced first attempt in the pump. Old medication removed and discarded. Pump refilled with hydromorphone, droperidol combination and reprogrammed. Reprogramming information was checked, copy given to the patient. She was discharged in good condition with followup visit scheduled in our clinic in about 2-3 months. Prescription for hydrocodone 7.5/325, #120 tablets provided for breakthrough pain. She was instructed carefully to safeguard these medications per our agreement. She will use it only as needed for breakthrough. ��������������������������������������������� ���������������������������������������� By: ��������������������������������������������� 1618 [id number] Geoff Mcrae MD /nt
[2018-10-22 09:20] VITALS: BP 161/93
--- NOTE | 2018-10-22 09:22 | NUR ---
Pain Clinic Assessment: 1. History of Osteoarthritis: Right Lower Extremity History of Rheumatoid Arthritis: Not Applicable 2. Height: 5 ft. 3 in. 160.0 cm. Weight: 114.0 lb. oz. 51.710 kg. Patient's BMI: 20.2 3. Vital Signs: BP: 161/93 Pulse: 77 Resp: 16 Temp: 02 Sat: 96 ECG Mon: 4. Pain Intensity: 8 5. Fall Risk: Dizziness: N Needs help standing or walking: N Fallen in the last 3 months: N Fall risk comments: 6. Patient on Blood Thinner: Clopidogrel Bisulf(Plavix 7. History of Hypertension: Y 8. Opioid Therapy greater than 6 weeks: Y Opiate Contract Signed: 12/04/15 9. Risk Assessment Tool Provided: 8-high risk 10. Functional Assessment Tool: 11. Recreational Drug Use: Never Drug Type: Tobacco Use: Former Smoker Tobacco Type: Amount or Packs/day: How Many Years: Alcohol Use: Yes Frequency: Quant:
== END | disposition home or self-care (01) ==
LOC: PAIN 06:51
DX: Z45.1 Encounter for adjustment and management of infusion pump (principal); G89.29 Other chronic pain; M19.90 Unspecified osteoarthritis, unspecified site; M96.1 Postlaminectomy syndrome, not elsewhere classified; I25.10 Atherosclerotic heart disease of native coronary artery without angina pectoris; I10 Essential (primary) hypertension; Z88.8 Allergy status to other drugs, medicaments and biological substances; Z87.891 Personal history of nicotine dependence; Z91.013 Allergy to seafood; Z79.899 Other long term (current) drug therapy

== ENCOUNTER → 2018-12-10 | Outpatient (CLI) | payer OTHER ==
[~2018-12-10] VITALS: Ht 160 cm; Wt 50.3 kg
[2018-12-10 10:48] VITALS: BP 156/93
--- NOTE | 2018-12-10 11:05 | NUR ---
Pain Clinic Assessment: 1. History of Osteoarthritis: Right Lower Extremity History of Rheumatoid Arthritis: Not Applicable 2. Height: 5 ft. 3 in. 160.0 cm. Weight: 111.0 lb. oz. 50.349 kg. Patient's BMI: 19.7 3. Vital Signs: BP: 156/93 Pulse: 88 Resp: 14 Temp: 02 Sat: 99 ECG Mon: 4. Pain Intensity: 5 5. Fall Risk: Dizziness: Y Needs help standing or walking: N Fallen in the last 3 months: Y Fall risk comments: 6. Patient on Blood Thinner: Clopidogrel Bisulf(Plavix 7. History of Hypertension: Y 8. Opioid Therapy greater than 6 weeks: Y Opiate Contract Signed: 12/04/15 9. Risk Assessment Tool Provided: 8-high risk 10. Functional Assessment Tool: 11. Recreational Drug Use: Never Drug Type: Tobacco Use: Former Smoker Tobacco Type: Amount or Packs/day: How Many Years: Alcohol Use: Yes Frequency: Daily Quant: 1-2
--- NOTE | 2018-12-22 17:25 | HPC ---
[facility] [email or web address] [address] PAIN MANAGEMENT CONSULTATION Name: ANUM VICK Room #: REG [facility] M.R.#: [id number] Admission: 12/10/18 ������������������ Attend Phys: Geoff Mcrae MD Discharge: ������������������ Date of : 43 Report #: [id number] THIS REPORT FOR: //name// CC: Vivek Mcrae DATE OF SERVICE: 12/10/2018 CHIEF COMPLAINT: Followup visit for management of chronic intractable pain with refill and reprogram of intrathecal infusion pump. The patient returns to clinic today for followup. She complains of pain in the level of 5/10. She has had some increasing dizziness and vertigo and will be seeing ENT specialist for this problem sometime this week. Primary pain generators are diffuse including her right hip, right ankle, low back, neck and shoulder blades. All of these cause some degree of discomfort for her on a daily basis, which is ameliorated to the extent by the intrathecal pump. Her pain score is 5/10. Pain is worse with walking and standing and is generally worse in the morning. She gets some relief in repositioning, heat, intrathecal pump and I also provided her with an additional hydrocodone 7.5/325 which she finds to be helpful. She is cautious about taking it particularly in the evening when she enjoys a cocktail. She had an event last year, which may have been precipitated by alcohol in combination with opioids. Her extensive past medical history is reviewed. She sees Dr. Vargas, Dr. Walsh. She has had angioplasty with stent. PHYSICAL EXAMINATION: GENERAL: She is pleasant, alert and oriented. No signs of overmedication. VITAL SIGNS: Her blood pressure is 156/93, heart rate 88, respirations 14, 5 feet 3 inches, weight 111 pounds, BMI is 19.7. MUSCULOSKELETAL: She moves from sitting to standing position with a fairly stable gait. She is slightly somewhat frail. She has pain and tenderness in her neck across her shoulders and pain in her right hip, status post hip replacement. Pump is in the right lower quadrant, nontender. IMPRESSION: 1. Chronic intractable pain with multiple pain generators including osteoarthritis. She has post-laminectomy syndrome. She complains of pain in her neck as well as continued pain in the right hip, status post replacement. 2. Management of intrathecal infusion pump. 3. Management of oral medications under terms of written agreement for [address] [address] PAIN MANAGEMENT CONSULTATION Name: ANUM VICK Room #: REG [facility]#: [id number] Admission: 12/10/18 ������������������ Attend Phys: Geoff Mrcae MD Discharge: ������������������ Date of : 43 Report #: [id number] pain generators. PROCEDURES: 1. Refill and reprogramming of intrathecal infusion pump. 2. Refill of oral medication. I have checked her prescription drug monitoring program, there are no unexpected entries. We reviewed her responsibilities under terms of our written agreement. PROCEDURE: Skin was prepped with ChloraPrep. A 22-gauge non-coring needle advanced into the intrathecal pump. Old medication removed and discarded per protocol. It was then followed by refill of 20 mL. Reprogramming session was performed. She will continue to receive hydromorphone 2 mg a day, droperidol 62.5 mcg a day. Her PTM device will allow for 50% increase over time based upon her needs. Her next refill is scheduled for 01/25/2019. PLAN: I renewed her hydrocodone under terms of our written agreement. ��������������������������������������������� <ELECTRONICALLY SIGNED> ���������������������������������������� By: Geoff Mcrae MD ��������������������������������������������� 12/22/18 1725 [id number] [id number] Geoff Mcrae MD /nt
== END | disposition home or self-care (01) ==
LOC: PAIN 06:56
DX: Z45.1 Encounter for adjustment and management of infusion pump (principal); G89.29 Other chronic pain; M19.90 Unspecified osteoarthritis, unspecified site; M96.1 Postlaminectomy syndrome, not elsewhere classified; Z87.891 Personal history of nicotine dependence; Z88.8 Allergy status to other drugs, medicaments and biological substances; Z91.041 Radiographic dye allergy status; Z91.013 Allergy to seafood; Z79.899 Other long term (current) drug therapy

== ENCOUNTER → 2019-01-14 | Outpatient (CLI) | payer OTHER ==
[~2019-01-14] VITALS: Ht 160 cm; Wt 50.7 kg
[~2019-01-14] MED LIST changes: +CYMBALTA30 MG PO
--- NOTE | ~2019-01-14 | HPC ---
[facility] [place] [address] PAIN MANAGEMENT CONSULTATION Name: ANUM VICK Room #: REG ANGELA Gaye.#: [id number] Admission: 01/14/19 ������������������ Attend Phys: Geoff Mcrae MD Discharge: ������������������ Date of : 43 Report #: [id number] THIS REPORT FOR: //name// CC: Vivek Mcrae DATE OF SERVICE: 01/14/2019 Followup visit for chronic intractable pain. Recent falls. The patient is here today with her , Gregory. She reports that she is developing increasing weakness and pain. She has been falling more. She is followed on several occasions over the course of the last month or so. She says if the pain becomes severe, she develops weakness in the leg and the leg gives out. Pain is severe with standing and walking. Pain is mostly around the hip and into the groin. She had a right total hip replacement performed for similar symptoms. Following surgery, she continued to have pain. I do not know if she has completed and continues with her physical therapy. At this point in time, she is certainly not exercising. She scores her daily pain as a 7/10. She denies dizziness today, but she clearly needs help standing and walking. She is using a cane. She is at risk from her falls due to use of Plavix. She had a severe fall last year, fracturing her femur, that was on the left and that has healed well. She denies pain on that side. I saw her in the hospital at [facility] after that fall. She had been drinking some alcohol the evening of her fall and she is on a number of medications. I raised concerns about polypharmacy. I am in the mix as one of her providers. I give her hydrocodone 7.5/325 up to 4 times daily for her chronic pain. She has been on hydrocodone in addition to medications in her intrathecal pump. Her opioid use dates back to 1997. She has been on opioids in one form or another for over 20 years. MEDICATIONS: Current medicines listed are alprazolam 1 mg at bedtime, Cymbalta 30 mg recently decreased per her Don to 20 mg daily, baclofen 10 mg 3 times daily, gabapentin 300 mg t.i.d., meclizine 25 mg one-half tablet as needed, Mysoline 50 mg b.i.d. for tremor, Benadryl 25 mg as needed for allergy, hydrocodone 7.5/325 four tablets daily, vitamin A and C with zinc and copper daily, omega 3 fatty acid, Plavix 75 mg, pantoprazole 40 mg, Crestor 10 mg. In addition, she has an intrathecal pump, which provides hydromorphone at a rate of 2 mg per day in combination with droperidol 62 mcg a day. She has been on intrathecal therapies for roughly 10 years. PHYSICAL EXAMINATION: [address] [address] PAIN MANAGEMENT CONSULTATION Name: NAVAFIDEANUM S Room #: REG CARI Koch#: [id number] Admission: 01/14/19 ������������������ Attend Phys: Geoff Mcrae MD Discharge: ������������������ Date of : 43 Report #: [id number] GENERAL: She is soft spoken and pleasant. She does not appear to be significantly overmedicated. She is anxious about her falls. VITAL SIGNS: Blood pressure is 125/75, heart rate 70, respirations 14, O2 sat 97. She is 19.8 BMI, this is standard for her. CHEST: Clear. CARDIAC: Rhythm regular. ABDOMEN: Soft. Pump in the right lower quadrant. BACK: Spine reveals extensive scar beginning in the lower thoracic region extending through the midline to the sacrum. There is tenderness at the lower edge of her scar. Examination of the hip reveals tenderness throughout the gluteal muscles through greater trochanter. EXTREMITIES: She can independently move from a sitting to standing position, but it takes some effort, she needs to use her arms to push up from a chair. Her gait is somewhat shuffling and antalgic. She uses a cane. She is able to turn without slipping, but is clearly a fall risk. She has pain with straight leg raising, internal and external rotation. Pain radiates through the groin, which is typical of pain generated through the hip. She has a prosthetic hip on the right. There is minimal pain on the left. Straight leg raising is mildly positive. Sensation is intact. She has marked weakness with hip flexion bilaterally. Weakness with leg extension. No plantar or dorsiflexion weakness. Deep tendon reflexes are diminished at knees and ankles. IMPRESSION: 1. Chronic intractable pain with multiple pain generators. I believe that much of her pain in the right hip is from the hip region itself. She has had a hip replacement, so is clearly not articular but may be soft tissue. This may respond to physical therapy. She has post-laminectomy syndrome and I believe she also has some component of lumbar radiculopathy. CT scan has been ordered. 2. Polypharmacy. I spoke with Dr. Powell about this. We might consider deprescribing. Does she really need the baclofen? We could start thereby trying to taper her off that. I would also consider tapering gabapentin to a lower dose. I have discussed alcohol in combination with multiple centrally acting drugs. The use of alcohol and alprazolam at night certainly puts her at some risk. She also uses hydrocodone in the evening. I would hate for her to fall again, particularly when she is unsteady on her feet getting out of bed at night. Dr. Powell and I have discussed this and he will help as we tried to deprescribe. I could also try to reduce her hydrocodone by increasing medication through her intrathecal pump, which would provide less central effect. She is at a modest dose and we could certainly increase her hydromorphone. I would encourage a rehabilitation program. This is easy to talk about, hard to convince the patient of the importance and to get them to do it. A concerted effort to improve mobility and strength would help decrease fall risk. [facility] [address] [place] [address] PAIN MANAGEMENT CONSULTATION Name: MALCOLMDILIAFIDEANUM S Room #: REG [facility].#: [id number] Admission: 01/14/19 ������������������ Attend Phys: Geoff Mcrae MD Discharge: ������������������ Date of : 43 Report #: [id number] I will follow up with her after we have the results of the x-ray studies ordered by Dr. Powell. ��������������������������������������������� ���������������������������������������� By: ��������������������������������������������� 1725 [id number] Geoff Mcrae MD /nt
[2019-01-14 09:23] VITALS: BP 129/75
--- NOTE | 2019-01-14 09:39 | NUR ---
Pain Clinic Assessment: 1. History of Osteoarthritis: Right Lower Extremity History of Rheumatoid Arthritis: Not Applicable 2. Height: 5 ft. 3 in. 160.0 cm. Weight: 111.8 lb. oz. 50.712 kg. Patient's BMI: 19.8 3. Vital Signs: BP: 129/75 Pulse: 70 Resp: 14 Temp: 02 Sat: 97 ECG Mon: 4. Pain Intensity: 7 5. Fall Risk: Dizziness: N Needs help standing or walking: Y Fallen in the last 3 months: Y Fall risk comments: 6. Patient on Blood Thinner: Clopidogrel Bisulf(Plavix 7. History of Hypertension: Y 8. Opioid Therapy greater than 6 weeks: Y Opiate Contract Signed: 12/04/15 9. Risk Assessment Tool Provided: 8-high risk 10. Functional Assessment Tool: 11. Recreational Drug Use: Never Drug Type: Tobacco Use: Former Smoker Tobacco Type: Amount or Packs/day: How Many Years: Alcohol Use: Yes Frequency: Daily Quant: 2
== END ==
LOC: PAIN 06:45
DX: M25.551 Pain in right hip (principal); G89.29 Other chronic pain; Z79.899 Other long term (current) drug therapy

== ENCOUNTER → 2019-01-28 | Outpatient (CLI) | payer OTHER ==
[~2019-01-28] VITALS: Ht 160 cm; Wt 50.7 kg
[2019-01-28 13:58] VITALS: BP 140/75
--- NOTE | 2019-01-28 14:13 | NUR ---
Pain Clinic Assessment: 1. History of Osteoarthritis: Right Lower Extremity History of Rheumatoid Arthritis: Not Applicable 2. Height: 5 ft. 3 in. 160.0 cm. Weight: 111.8 lb. oz. 50.712 kg. Patient's BMI: 19.8 3. Vital Signs: BP: 140/75 Pulse: 92 Resp: 14 Temp: 02 Sat: 97 ECG Mon: 4. Pain Intensity: 7 5. Fall Risk: Dizziness: N Needs help standing or walking: N Fallen in the last 3 months: Y Fall risk comments: 6. Patient on Blood Thinner: Clopidogrel Bisulf(Plavix 7. History of Hypertension: Y 8. Opioid Therapy greater than 6 weeks: Y Opiate Contract Signed: 12/04/15 9. Risk Assessment Tool Provided: 8-high risk 10. Functional Assessment Tool: 11. Recreational Drug Use: Never Drug Type: Tobacco Use: Former Smoker Tobacco Type: Amount or Packs/day: How Many Years: Alcohol Use: Yes Frequency: Quant:
--- NOTE | 2019-01-29 11:28 | HPC ---
[facility] [place] [address] PAIN MANAGEMENT CONSULTATION Name: ANUM VICK Room #: REG [facility] M..#: [id number] Admission: 01/28/19 Attend Phys: Esme Mack Discharge: Date of : 43 Report #: [id number] THIS REPORT FOR: //name// CC: Esme Mack Vivek Powell DATE OF SERVICE: 01/28/2019 CHIEF COMPLAINT: Chronic intractable pain, increased weakness, recent falls. HISTORY OF PRESENT ILLNESS: This is a 73-year-old female who returns to the pain clinic today with her . She is here for refill of her hydrocodone. She tells me that she has recently fallen several times and then on Friday, she leaned over the armchair and she thinks she fractured a rib on her right chest wall. The patient tells me that pain is worse when she is sleeping at night. She is not having any difficulty breathing. She also suffers from ongoing low back pain, right hip and groin pain. The patient reports a pain score of 8/10 today, worse with walking and standing. It is better with medication and repositioning. She denies problems with constipation. She is scheduled to have her intrathecal pump refilled next week, but she will be out of her pain pills before then. The patient tells me she is also going to see Dr. Levine next week, who ordered a CT of her lumbar spine. She believes that the metal from her previous back surgeries has been pressing on her skin causing her significant pain. ALLERGIES: BEE STING, SUNFLOWER SEEDS, IV CONTRAST, SHELLFISH, LEVAQUIN, ERYTHROMYCIN, AND GLUTEN. CURRENT LIST OF MEDICATIONS: Xanax 1 mg at bedtime, Cymbalta 30 mg daily, hydrocodone 7.5 q.i.d. p.r.n., gabapentin 300 mg t.i.d., probiotic, PreserVision, Plavix 75 mg daily, metoprolol 50 mg daily, Antivert p.r.n., Mysoline 50 mg b.i.d., Protonix 40 mg daily, fish oil omega-3, multivitamin, vitamin D, and Crestor 10 mg at bedtime. PQRS: 1. She has osteoarthritis of her right lower extremity and lumbar spine. She denies any rheumatoid arthritis. 2. Height is 5 feet 3 inches, weight is 111, BMI is 19. 3. Vital signs: Blood pressure 140/75, pulse is 93, respirations 14, oxygen sat is 97. 4. Pain score is 8/10. 5. Fall risks: Denies dizziness, is slightly unsteady on her feet and has fallen multiple times in the last 3 months. 6. The patient is on Plavix. She has a history of hypertension. 7. Opioid therapy is greater than 6 weeks; therefore, an opioid signed contract [address] [address] PAIN MANAGEMENT CONSULTATION Name: NAVAANUM S Room #: REG [facility] August#: [id number] Admission: 01/28/19 Attend Phys: Esme Mack Discharge: Date of : 43 Report #: [id number] is on the chart. 8. Risk assessment is high. Functional assessment is 35/70. 9. Recreational drug use, she denies. She is a former smoker and drinks alcohol daily. According to the prescription monitoring system, the patient is filling appropriately for her medications. She filled last 12/30/2018. There is a drug screen on the chart. PHYSICAL EXAMINATION: GENERAL: She is a soft-spoken, 73-year-old female who appears her stated age. She is alert and orientated. HEENT: Normocephalic, atraumatic. Extraocular eye muscles are intact. She does have an old healing bruise underneath her right cheek bone. BACK: Spine reveals extensive scar from her thoracic region to her sacrum. CHEST: She complains of right chest wall pain from her recent injury to her chest wall. EXTREMITIES: She can move independently from sitting to standing position. She walks with an antalgic gait, somewhat shuffling. She does use a cane. She has a prosthetic hip on her right. She does complain of right hip pain that radiates into her groin to her thigh. Lower extremity strength judged to be 5/5 in all major muscle groups. IMPRESSION: 1. Chronic intractable pain with multiple pain generators. 2. Post-laminectomy syndrome. 3. Lumbar radiculopathy. 4. Polypharmacy. 5. Management of intrathecal pump. We reviewed the fact that opiate medications are being used to provide analgesia adequate to support activities of daily living, not attempting to achieve a specific pain score on the 0-10 Visual Analog Scale. The current opiate medications are providing sufficient analgesia to allow the patient to participate in activities of daily living. The patient is not exhibiting any aberrant behavior suggestive of drug diversion. The patient is not having any adverse reactions to medications. The patient is not suffering from daytime somnolence or mental acuity changes. The patient is managing opiate-induced constipation with appropriate delz-pki-bkfikjk agents and dietary considerations. The patient was counseled on concern for caution with operating a motor vehicle while using opiate medications. A physical exam was performed and the patient's functional status was evaluated. All patients with back pain were advised against the bed rest greater than 4 days and were advised to return to normal activities. Pain score assessment was noted and the treatment plan was reviewed with the patient. All current [facility] [address] [place] [address] PAIN MANAGEMENT CONSULTATION Name: ANUM VICK Room #: REG [facility] M.R.#: [id number] Admission: 01/28/19 Attend Phys: Esme Mack Discharge: Date of : 43 Report #: [id number] medications, both prescribed and OTC were reviewed and reconciled on the electronic medical record. Tobacco screening was accomplished and smoking cessation was advised when indicated. BMI was noted and diet/exercise modification was recommended for all patients following outside normal parameters. I reviewed with the patient today their responsibilities to safeguard prescription medications, reviewed their responsibility to utilize medications only as prescribed by the physician. They are to seek and receive pain medications only from 1 physician group ( [facility]). They are to use 1 pharmacy and keep the clinic informed if they change pharmacies. Their responsibilities include making followup visits in a timely fashion and to avoid abrupt discontinuation of medication usage. Their responsibilities further include bringing their medications (bottles from the pharmacy with residual pills) to the visit for possible confirmation of pill counts and the patient understands it is their responsibility to submit to random drug screens to ensure both that the medications prescribed are present, and that no other controlled substances are present. All prescriptions provided today were generated electronically. PLAN: 1. We discussed treatment options with the patient today. The patient tells me she thinks she broke a rib on the right chest wall. She did not seek medical attention. I offered an x-ray today, which she refused. She tells me that she thinks it will heal on its own. She knows, "there is nothing she can do for a rib fracture." I encouraged the patient to use some Lidoderm patches that she does have at home, especially when she is sleeping to aid in some of her discomfort. The patient is not exhibiting any difficulty breathing and does not grimace when she is sitting and moving in the chair today. 2. The patient is requesting refill of her hydrocodone. She had been taking an average of 3 a day, but since this recent injury, she increased her pain pills to 4 times a day. Scripts given for hydrocodone 7.5/325 q.i.d. for refill today and 4-week release. 3. The patient is going to see Dr. Levine about her back. The patient does have a CT lumbar spine that she brought with us today showing chronic L1 compression fracture that has been unchanged, multiple-level spondylosis, postoperative changes at L2, L3, L4 with hardware present. 4. The patient will return next week for her intrathecal pump refill. The patient is seen in collaboration today with Dr. Geoff Mcrae. <ELECTRONICALLY SIGNED> By: Esme Mack 01/29/19 [id number] Esme Mack /nt
== END ==
LOC: PAIN 07:01
DX: G89.4 Chronic pain syndrome (principal); M54.16 Radiculopathy, lumbar region; M96.1 Postlaminectomy syndrome, not elsewhere classified; Z79.899 Other long term (current) drug therapy; Z91.013 Allergy to seafood; Z88.8 Allergy status to other drugs, medicaments and biological substances; Z91.030 Bee allergy status

== ENCOUNTER → 2019-02-04 | Outpatient (CLI) | payer OTHER ==
[~2019-02-04] VITALS: Ht 160 cm; Wt 50.7 kg
--- NOTE | ~2019-02-04 | HPC ---
[facility] [address] [place] [address] PAIN MANAGEMENT CONSULTATION Name: ANUM VICK Room #: REG [facility] M..#: [id number] Admission: 02/04/19 Attend Phys: Geoff Mcrae MD Discharge: Date of : 43 Report #: [id number] THIS REPORT FOR: //name// CC: Vivek Mcrae DATE OF SERVICE: 02/04/2019 CHIEF COMPLAINT: Followup visit for chronic intractable pain, weakness and recent falls. HISTORY OF PRESENT ILLNESS: The patient is in the pain clinic today for a 25-minute consultation. I have been following the patient for intractable pain for over 10 years. She has an intrathecal pump infusing droperidol and hydromorphone. The pump has been helpful. In addition, she supplements with additional opioid pain medication, hydrocodone 7.5/325, no more than 4 tablets in a day and oftentimes she uses substantially less than this. She does take it on an as needed basis. I have discussed with the patient and with her , Gregory and with Dr. Powell my concern about polypharmacy in addition to alcohol. The patient has been having numerous falls. She even fell out of bed recently. We had a very tangela discussion today about alcohol. We also discussed the combination of alcohol with a benzodiazepine, alprazolam at bedtime, hydrocodone taken during the day, gabapentin taken 3 times a day, also at bedtime and Cymbalta 30 mg daily. She is on Plavix. She is at significant risk if she does indeed fall. She has bruising on her right arm from a recent fall and has also significant bruise on her left hip. I would put fall risk as one of our number one concerns and the combination of medications plus alcohol a likely contributor. PQRS REVIEW: 1. History of osteoarthritis, right lower extremity, hip replacement with ongoing pain. 2. BMI of 19.8. 3. Vital signs: Blood pressure 143/85, heart rate 92. 4. Pain intensity is 8. 5. She is indeed a fall risk. 6. She is on Plavix. 7. History of hypertension, under treatment by Dr. Powell. All of her medications have been reviewed and reconciled on the electronic medical record and are listed. 8. [place] [address] PAIN MANAGEMENT CONSULTATION Name: MALCOLMRAINAANUM ROQUE Room #: REG [facility].#: [id number] Admission: 02/04/19 Attend Phys: Geoff Mcrae MD Discharge: Date of : 43 Report #: [id number] 9. She is considered at high risk for addiction by the opioid risk tool scoring 8. 10. Functional assessment tool of 35/70. 11. She continues to use alcohol on a daily basis and describes herself as a former smoker. PHYSICAL EXAMINATION: VITAL SIGNS: As noted above. GENERAL: She is pleasant, soft spoken. She does not appear to be depressed. EYES: Her pupils are equal, round, reactive to light. Her EOMs are intact. NECK: Stiff and she has some tenderness in the cervical spine. CHEST: Clear. CARDIOVASCULAR: Her cardiac rhythm is regular. ABDOMEN: Soft. Pump is in the right lower quadrant of the abdomen, nontender. EXTREMITIES: She has tenderness across the lumbosacral spine where she has scars from previous surgery. She has a prosthetic hip on the right. NEUROLOGIC: Lower extremity strength is judged to be 5/5 in all muscle groups. Sensation is intact. IMPRESSION: 1. Chronic intractable pain with multiple pain generators. This includes hip, low back, status post laminectomy and lumbar radiculopathy. 2. Management of intrathecal infusion pump. Her doses are stable and I think that this is helpful. Her daily dose of hydromorphone through the intrathecal pump is 2.0, droperidol 62 mcg. This is considered low dose on the droperidol side. 3. Polypharmacy and concerns about alcohol interaction with sedating drugs. None of her drugs are on the [facility]ers list and would be considered contributors to her fall. PLAN: 1. A tangela discussion ensued and she has told me that she will make efforts to stop drinking completely. I think this is a green move particularly in light of her recent falls. I am concerned again about her Plavix use and the multiple falls. 2. She does not feel depressed and we may be able to take her off of Cymbalta. She is going to taper off every other day and then completely off, that would eliminate 1 additional centrally acting drug. 3. Consider reducing hydrocodone to half a tablet. She will make efforts to use the lowest effective dose to control her pain. I believe it would be difficult to completely eliminate opioids from her list without significant effort in withdrawal and increases in pain. [facility] [address] [place] [address] PAIN MANAGEMENT CONSULTATION Name: ANUM VICK Room #: REG [facility] Koch#: [id number] Admission: 02/04/19 Attend Phys: Geoff Mcrae MD Discharge: Date of : 43 Report #: [id number] Followup visit planned in 1-2 months for pump refill and renewal of medication. A 40-minute consult. By: [id number] Geoff Mcrae MD /nt
[2019-02-04 10:08] VITALS: BP 143/85
--- NOTE | 2019-02-04 10:28 | NUR ---
Pain Clinic Assessment: 1. History of Osteoarthritis: Right Lower Extremity History of Rheumatoid Arthritis: Not Applicable 2. Height: 5 ft. 3 in. 160.0 cm. Weight: 111.8 lb. oz. 50.712 kg. Patient's BMI: 19.8 3. Vital Signs: BP: 143/85 Pulse: 92 Resp: 14 Temp: 02 Sat: 100 ECG Mon: 4. Pain Intensity: 8 5. Fall Risk: Dizziness: N Needs help standing or walking: N Fallen in the last 3 months: Y Fall risk comments: 6. Patient on Blood Thinner: Clopidogrel Bisulf(Plavix 7. History of Hypertension: Y 8. Opioid Therapy greater than 6 weeks: Y Opiate Contract Signed: 12/04/15 9. Risk Assessment Tool Provided: 8-high riskY 10. Functional Assessment Tool: 11. Recreational Drug Use: Never Drug Type: Tobacco Use: Former Smoker Tobacco Type: Amount or Packs/day: How Many Years: Alcohol Use: Yes Frequency: Daily Quant: 2
== END | disposition home or self-care (01) ==
LOC: PAIN 06:48
DX: Z45.1 Encounter for adjustment and management of infusion pump (principal); G89.29 Other chronic pain; I10 Essential (primary) hypertension; Z79.891 Long term (current) use of opiate analgesic; Z87.891 Personal history of nicotine dependence; Z96.641 Presence of right artificial hip joint; Z98.890 Other specified postprocedural states; Z91.041 Radiographic dye allergy status; Z88.8 Allergy status to other drugs, medicaments and biological substances; Z79.899 Other long term (current) drug therapy

== ENCOUNTER → 2019-02-18 | Outpatient (CLI) | payer OTHER ==
[~2019-02-18] VITALS: Ht 160 cm; Wt 50.5 kg
--- NOTE | ~2019-02-18 | HPC ---
[facility] [address] [place] [address] PAIN MANAGEMENT CONSULTATION Name: MALCOLMRAINAANUM ROQUE Room #: REG [facility]izar.#: [id number] Admission: 02/18/19 Attend Phys: Geoff Mcrae MD Discharge: Date of : 43 Report #: [id number] THIS REPORT FOR: //name// CC: Vivek Mcrae DATE OF SERVICE: 02/18/2019 Followup visit for cervicalgia with radiculopathy, lumbar radiculopathy, frequent falls, polypharmacy. The patient was in the pain clinic today again for about 25 minutes at this time with , Gregory. She is wearing dark glasses. She has fallen yet again and hit herself on the side of her left orbit. With her use of Plavix, she has an extensive bruise and black eye. She is falling frequently. She fell out of bed earlier in March and now she fell getting up off the toilet. I have asked her about lightheadedness or dizziness. She does not know what is triggering these falls. She has had blood pressure lability in the past. I had a long and tangela discussion with her and we rejoined that conversation today with Don about polypharmacy plus alcohol. I have ordered a urine drug screen. If there is alcohol or its metabolites in the drug screen, it will raise more concerns about alcohol in combination with her polypharmacy regimen. She has backed off of medication as requested. She has decreased her gabapentin slowly and then off and has also stopped Cymbalta. She says that her pain is up. She has an intrathecal pump. We will initiate a higher dose in the intrathecal pump today. PQRS REVIEW: 1. History of osteoarthritis. 2. BMI 19.8, unchanged. 3. Vital signs: Blood pressure is 154/97. We performed a very careful test of orthostasis. She was allowed to lie down for 5 minutes. Blood pressure was taken 160/80 and then repeated as she moved from supine to standing position. There was no significant change in her systolic or diastolic pressure and heart rate remained in the 80s. There was no fall, but she did feel dizzy. 4. Pain intensity 01/30. 5. She is indeed a fall risk as discussed above. 6. She is on Plavix. 7. History of hypertension and also blood pressure lability. 8. Opioid agreement. She remains on hydromorphone in her intrathecal pump with droperidol as well as supplementary oral hydrocodone 7.5 one to four tablets a day. She has been on this for years dating back to 2001. There has been no [address] [address] PAIN MANAGEMENT CONSULTATION Name: ANUM VICK Room #: REG [facility].#: [id number] Admission: 02/18/19 Attend Phys: Geoff Mcrae MD Discharge: Date of : 43 Report #: [id number] increase in her dose. She is on an opioid agreement. 9. She is considered at high risk for addiction by the opioid risk tool. 10. She continues to use alcohol and is described as a former smoker. PHYSICAL EXAMINATION: GENERAL: Pleasant, soft spoken, wearing sunglasses. HEENT: Reveals bruising around the left eye. NECK: Stiff with tenderness in the cervical spine. Pain with forward flexion, extension and rotation. CHEST: Clear. CARDIAC: Rhythm regular. ABDOMEN: Soft. Pump in the right quadrant. MUSCULOSKELETAL: Tenderness across the lumbosacral spine. Scars are noted. Prosthetic hip scar on the right. Generalized strength in the lower extremities is 5+ in all muscle groups. No focal numbness. IMPRESSION: 1. Primary concern is frequent falls. She is not orthostatic. Polypharmacy remains of concern. 2. Management of chronic intractable pain. Her pain has been increased since she has reduced her medication. I am intending to increase her intrathecal medication by 10% today and we will allow her to continue to use her PTM device. She has been on intrathecal therapy for over 10 years. I do not believe it is new based upon its constant use. 3. Polypharmacy. Pump was increased and I have renewed her hydrocodone with an early release. She and her plan to take a trip driving. I am a little concerned about that since she will be away from home. It was for that reason that we did the orthostatic testing today. Discussed again the importance of avoiding alcohol while using other medications. We will review results of urine drug screening. By: [id number] Geoff Mcrae MD /nt
[2019-02-18 12:59] VITALS: BP 154/97
--- NOTE | 2019-02-18 13:12 | NUR ---
Pain Clinic Assessment: 1. History of Osteoarthritis: Right Lower Extremity History of Rheumatoid Arthritis: Not Applicable 2. Height: 5 ft. 3 in. 160.0 cm. Weight: 111.4 lb. oz. 50.531 kg. Patient's BMI: 19.7 3. Vital Signs: BP: 154/97 Pulse: 89 Resp: 14 Temp: 02 Sat: 98 ECG Mon: 4. Pain Intensity: 8 5. Fall Risk: Dizziness: Y Needs help standing or walking: N Fallen in the last 3 months: Y Fall risk comments: 6. Patient on Blood Thinner: Clopidogrel Bisulf(Plavix 7. History of Hypertension: Y 8. Opioid Therapy greater than 6 weeks: Y Opiate Contract Signed: 12/04/15 9. Risk Assessment Tool Provided: 8-high risk 10. Functional Assessment Tool: 11. Recreational Drug Use: Never Drug Type: Tobacco Use: Former Smoker Tobacco Type: Amount or Packs/day: How Many Years: Alcohol Use: Yes Frequency: Quant:
== END | disposition home or self-care (01) ==
LOC: PAIN 08:32
DX: Z45.1 Encounter for adjustment and management of infusion pump (principal); G89.29 Other chronic pain; M54.16 Radiculopathy, lumbar region; M54.12 Radiculopathy, cervical region; M19.90 Unspecified osteoarthritis, unspecified site; I10 Essential (primary) hypertension; Z79.891 Long term (current) use of opiate analgesic; Z98.890 Other specified postprocedural states; Z79.899 Other long term (current) drug therapy; Z87.891 Personal history of nicotine dependence; Z91.041 Radiographic dye allergy status; Z88.8 Allergy status to other drugs, medicaments and biological substances

== ENCOUNTER → 2019-03-11 | Outpatient (CLI) | payer OTHER ==
[~2019-03-11] VITALS: Ht 160 cm; Wt 52.3 kg
--- NOTE | ~2019-03-11 | HPC ---
[facility] [place] [address] PAIN MANAGEMENT CONSULTATION Name: ANUM VICK Room #: REG [facility] M.Darshan.#: [id number] Admission: 03/11/19 ������������������ Attend Phys: Geoff Mcrae MD Discharge: ������������������ Date of : 43 Report #: [id number] THIS REPORT FOR: //name// CC: Vivek Mcrae DATE OF SERVICE: 03/11/2019 Followup visit for epidural injection. The patient returns with her , Gregory, today to go forward with an epidural injection using a transforaminal approach on the right. There were very forthcoming today, discussing her use of alcohol. They both agree that her falls are related to alcohol use during the evening hours. She drinks vodka, takes typically at night and has even gotten up in the middle of the night to go have a drink. She spilled one of the drinks on the floor and fell. Fortunately, this time not hurting herself. A tangela discussion once again ensued. I have urged her abstinence from alcohol. They were stopped short of discussing Alcoholics Anonymous. Her urine drug screen at last visit was positive for metabolites of alcohol, which actually could be positive even from the day before, but they were both discussing today her use of alcohol and will make efforts to curtail issues. We have stopped other medications as well including gabapentin, Cymbalta, which may be contributing to her polypharmacy falls. Today, she is here today for her injection discussed on 02/18/2019. IMPRESSION: Post-laminectomy syndrome with radiculopathy on the right. PROCEDURE: Right L2-L3 transforaminal epidural injection under fluoroscopic guidance. After informed consent, she was taken to fluoroscopic suite for the injection. She was placed prone, skin prepped with ChloraPrep. Skin anesthetized over the right L2-L3 neural foramen. Using triplanar fluoroscopic views I advanced the needle into the neural foramen. When 0.25 mL of Omnipaque injected, demonstrated an excellent epidurogram and followed then by a total of 4 mL of 0.5% lidocaine mixed with 10 mg of triamcinolone. She tolerated the procedure well. There were no complications. She was observed in recovery room for an hour and discharged. [address] [address] PAIN MANAGEMENT CONSULTATION Name: MALCOLMRAINAVEENA ROQUEY Dominique Room #: REG [facility].#: [id number] Admission: 03/11/19 ������������������ Attend Phys: Geoff Mcrae MD Discharge: ������������������ Date of : 43 Report #: [id number] Followup visit planned for pump refill in the upcoming month or two. ��������������������������������������������� ���������������������������������������� By: ��������������������������������������������� [id number] Geoff Mcrae MD /nt
[2019-03-11 11:20] VITALS: BP 137/76
--- NOTE | 2019-03-11 11:50 | NUR ---
Pain Clinic Assessment: 1. History of Osteoarthritis: Right Lower Extremity NECK History of Rheumatoid Arthritis: Not Applicable 2. Height: 5 ft. 3 in. 160.0 cm. Weight: 115.4 lb. oz. 52.345 kg. Patient's BMI: 20.4 3. Vital Signs: BP: 137/76 Pulse: 68 Resp: 14 Temp: 02 Sat: 100 ECG Mon: 4. Pain Intensity: 6 5. Fall Risk: Dizziness: N Needs help standing or walking: N Fallen in the last 3 months: Y Fall risk comments: 6. Patient on Blood Thinner: Clopidogrel Bisulf(Plavix 7. History of Hypertension: Y 8. Opioid Therapy greater than 6 weeks: Y Opiate Contract Signed: 12/04/15 9. Risk Assessment Tool Provided: 8-high risk 10. Functional Assessment Tool: 11. Recreational Drug Use: Never Drug Type: Tobacco Use: Former Smoker Tobacco Type: Amount or Packs/day: How Many Years: Alcohol Use: Yes Frequency: Daily Quant: 2-3
== END | disposition home or self-care (01) ==
LOC: PAIN 06:48
DX: M54.16 Radiculopathy, lumbar region (principal); M96.1 Postlaminectomy syndrome, not elsewhere classified; G89.29 Other chronic pain; I25.10 Atherosclerotic heart disease of native coronary artery without angina pectoris; Z79.899 Other long term (current) drug therapy; Z88.8 Allergy status to other drugs, medicaments and biological substances; Z87.891 Personal history of nicotine dependence; Z98.890 Other specified postprocedural states

== ENCOUNTER → 2019-03-29 | Outpatient (CLI) | payer OTHER ==
[~2019-03-29] VITALS: Ht 160 cm; Wt 52.3 kg
[~2019-03-29] MED LIST changes: +ZOLOFT25 MG PO
[2019-03-29 13:07] VITALS: BP 167/89
--- NOTE | 2019-03-29 13:22 | NUR ---
Pain Clinic Assessment: 1. History of Osteoarthritis: Right Lower Extremity NECK History of Rheumatoid Arthritis: DENIES 2. Height: 5 ft. 3 in. 160.0 cm. Weight: 115.4 lb. oz. 52.345 kg. Patient's BMI: 20.4 3. Vital Signs: BP: 167/89 Pulse: 74 Resp: 14 Temp: 02 Sat: 99 ECG Mon: 4. Pain Intensity: 8 WALKING 4 SITTING 5. Fall Risk: Dizziness: N Needs help standing or walking: N Fallen in the last 3 months: N Fall risk comments: 6. Patient on Blood Thinner: Clopidogrel Bisulf(Plavix 7. History of Hypertension: Y 8. Opioid Therapy greater than 6 weeks: Y Opiate Contract Signed: 12/04/15 9. Risk Assessment Tool Provided: 8-high risk 10. Functional Assessment Tool: 11. Recreational Drug Use: Never Drug Type: Tobacco Use: Former Smoker Tobacco Type: Amount or Packs/day: How Many Years: Alcohol Use: Past use Frequency: Quant:
--- NOTE | 2019-04-01 16:52 | HPC ---
[facility] [place] [address] PAIN MANAGEMENT CONSULTATION Name: ANUM VICK Room #: REG [facility] Gaye.#: [id number] Admission: 03/29/19 Attend Phys: Geoff Mcrae MD Discharge: Date of : 43 Report #: [id number] THIS REPORT FOR: //name// CC: Vivek Mcrae DATE OF SERVICE: 03/29/2019 The patient returns to pain clinic today by herself. I last saw her on 03/11/2019. Her , Gregory was with her. At that time, we had an extended discussion about alcohol. She has abstained since her last visit. She says there is no vodka in the house. She seems to be doing well. There is no evidence of alcohol withdrawal. I am pleased to see that she has accepted the recommendations of the family and physicians to abstain. She has not fallen since her last visit here and her overall affect seems much brighter. She is here today for refill of her intrathecal infusion pump. Her pump is infusing a combination of hydromorphone and droperidol. She has a history of chronic diarrhea and gluten sensitivity. She has celiac disease. The small amount of oral opioid provided on top of her intrathecal pump provides both additional pain relief as well as helps control her constant diarrhea. I have reviewed all medications. We discussed her most recent injection, right L2-L3 transforaminal epidural injection. She feels that it was helpful providing reductions in pain. She still has multiple other pain generators including neck, back, and osteoarthritis. PHYSICAL EXAMINATION: She is 5 feet 3 inches, 155 pounds, BMI of 20.4, blood pressure 167/89, heart rate 74. Pain is 8/10. She moves independently from a sitting to standing, walks today with a good steady gait. She does not appear to be a fall risk. The patient is on a blood thinner and has a history of hypertension, under treatment. She has signed an opioid agreement. She is at high risk for addiction. We will monitor her medications closely at the intervals of her pump, which are about 6 weeks. She has completed a functional assessment tool, which is improved at 35/70. She denies use of tobacco and alcohol at this time. IMPRESSION: 1. Chronic intractable pain with cervicalgia and radiculopathy, lumbar radiculopathy. 2. Management of intrathecal infusion pump with refill and reprogramming session. [address] [address] PAIN MANAGEMENT CONSULTATION Name: ANUM VICK [facility] [id number] Admission: 03/29/19 Attend Phys: Geoff Mcrae MD Discharge: Date of : 43 Report #: [id number] PROCEDURE: The skin was prepped with ChloraPrep and anesthetized. A 22-gauge non-coring needle advanced in the intrathecal pump. Old medication removed and discarded. Pump was then refilled with a combination of droperidol and hydromorphone. A reprogramming session was performed for a total daily dose of 2.1 mg of hydromorphone and droperidol 68.7. Under terms of her written agreement, I have renewed for her hydrocodone 7.5/325, a total of 120 tablets. This will be provided for her as needed for breakthrough pain. Followup visit is scheduled in 6 weeks. <ELECTRONICALLY SIGNED> By: Geoff Mcrae MD 04/01/19 [id number] [id number] Geoff Mcrae MD /nt
== END | disposition home or self-care (01) ==
LOC: PAIN 06:34
DX: Z45.1 Encounter for adjustment and management of infusion pump (principal); G89.29 Other chronic pain; M54.16 Radiculopathy, lumbar region; M54.12 Radiculopathy, cervical region; Z87.891 Personal history of nicotine dependence; Z88.8 Allergy status to other drugs, medicaments and biological substances; Z91.013 Allergy to seafood; Z98.890 Other specified postprocedural states

== ENCOUNTER → 2019-05-17 | Outpatient (CLI) | payer OTHER ==
[~2019-05-17] VITALS: Ht 160 cm; Wt 49.0 kg
[2019-05-17 12:44] VITALS: BP 125/76
== END | disposition home or self-care (01) ==
LOC: PAIN 06:48
DX: Z45.1 Encounter for adjustment and management of infusion pump (principal); G89.29 Other chronic pain; M54.5 Low back pain; M96.1 Postlaminectomy syndrome, not elsewhere classified; I10 Essential (primary) hypertension; I25.10 Atherosclerotic heart disease of native coronary artery without angina pectoris; Z98.890 Other specified postprocedural states; Z79.891 Long term (current) use of opiate analgesic; Z79.899 Other long term (current) drug therapy; Z88.8 Allergy status to other drugs, medicaments and biological substances; Z87.891 Personal history of nicotine dependence; Z91.041 Radiographic dye allergy status

== ENCOUNTER → 2019-07-12 | Outpatient (CLI) | payer OTHER ==
[~2019-07-12] VITALS: Ht 160 cm; Wt 49.4 kg
[2019-07-12 13:46] VITALS: BP 127/69
--- NOTE | 2019-07-12 14:03 | NUR ---
Pain Clinic Assessment: 1. History of Osteoarthritis: Right Lower Extremity NECK History of Rheumatoid Arthritis: DENIES 2. Height: 5 ft. 3 in. 160.0 cm. Weight: 109.0 lb. oz. 49.442 kg. Patient's BMI: 19.3 3. Vital Signs: BP: 127/69 Pulse: 67 Resp: 14 Temp: 02 Sat: 95 ECG Mon: 4. Pain Intensity: 5 5. Fall Risk: Dizziness: N Needs help standing or walking: N Fallen in the last 3 months: Y Fall risk comments: 6. Patient on Blood Thinner: Clopidogrel Bisulf(Plavix 7. History of Hypertension: Y 8. Opioid Therapy greater than 6 weeks: Y Opiate Contract Signed: 12/04/15 9. Risk Assessment Tool Provided: 8-HIGH RISK 10. Functional Assessment Tool: 11. Recreational Drug Use: Never Drug Type: Tobacco Use: Former Smoker Tobacco Type: Amount or Packs/day: How Many Years: Alcohol Use: Past use Frequency: Quant:
--- NOTE | 2019-07-15 17:02 | HPC ---
[facility] [place] [address] PAIN MANAGEMENT CONSULTATION Name: MALCOLMRAINAANUM ROQUE Room #: REG ANGELASherrie Huizar.#: [id number] Admission: 07/12/19 Attend Phys: Geoff Mcrae MD Discharge: Date of : 43 Report #: [id number] THIS REPORT FOR: //name// CC: Vivek Mcrae DATE OF SERVICE: 07/12/2019 Followup visit for chronic pain and management of intrathecal infusion pump. The patient returns to pain clinic today for renewal of her intrathecal medication. She is receiving hydromorphone and droperidol. She does not routinely use it, but she also has some breakthrough hydrocodone, which I provide for her under terms of written agreement. Her last prescription for hydrocodone was on 05/17/2019, for 120 tablets with a refill prescription in May. She uses about 3 tablets a day and I have told her that today, we will reduce her prescription to match her current usage. She still has a few tablets left. Intrathecal pump includes a PTM device, which she uses effectively. PQRS review is positive for significant cervical spondylosis. She also complains of arthritis of the hips and knees. She has had a hip replacement, which continues to bother her with some postoperative pain. BMI is 19.3, blood pressure 127/69, heart rate 67, respirations 14, and O2 sat 95. Pain intensity 5. She has fallen in the last 3 months and she comes with a bruise on her chin. This is a concern because of my worries about alcohol in combination with oral medications. She is on a blood thinner, Plavix as well as an antihypertensive. Medications have been reviewed and reconciled. She is on an opioid agreement and is considered at high risk for addiction. Her opioid risk tool score is 8. Her functional assessment score 42. She denies tobacco, but continues to use alcohol despite counseling. IMPRESSION: 1. Chronic back pain with multiple generators, status post laminectomy, post-laminectomy with radiculopathy, failed back syndrome. 2. Polypharmacy with alcohol concerns. I will taper her opioids today. 3. Management of intrathecal infusion pump. PROCEDURE: Skin was prepped with ChloraPrep. A 22-gauge non-coring needle advanced into the intrathecal pump. Old medication removed and discarded per protocol. Pump was then refilled with a combination of hydromorphone and droperidol and reprogramming session performed. Doses and medications were checked carefully and signed by myself and the nurse, copy provided to the patient. Next refill is scheduled for 08/27/2019. [place] [address] PAIN MANAGEMENT CONSULTATION Name: NAVAFIDEANUM S Room #: REG CARI Koch#: [id number] Admission: 07/12/19 Attend Phys: Geoff Mcrae MD Discharge: Date of : 43 Report #: [id number] I did renew her hydrocodone for 5 mg tablets #90. This will be a reduction. Followup visit scheduled in 2-3 months. She will need a new intrathecal pump soon, her third. <ELECTRONICALLY SIGNED> By: Geoff Mcrae MD 07/15/19 1702 [id number] Geoff Mcrae MD /nt
== END | disposition home or self-care (01) ==
LOC: PAIN 07-01 06:44
DX: Z45.1 Encounter for adjustment and management of infusion pump (principal); G89.29 Other chronic pain; M96.1 Postlaminectomy syndrome, not elsewhere classified; M19.90 Unspecified osteoarthritis, unspecified site; I10 Essential (primary) hypertension; I25.10 Atherosclerotic heart disease of native coronary artery without angina pectoris; Z91.041 Radiographic dye allergy status; Z79.891 Long term (current) use of opiate analgesic; Z79.899 Other long term (current) drug therapy; Z79.01 Long term (current) use of anticoagulants; Z88.8 Allergy status to other drugs, medicaments and biological substances

== ENCOUNTER → 2019-09-06 | Outpatient (CLI) | payer OTHER ==
[~2019-09-06] VITALS: Ht 160 cm; Wt 48.2 kg
--- NOTE | ~2019-09-06 | HPC ---
[facility] [address] [place] [address] PAIN MANAGEMENT CONSULTATION Name: ANUM VICK Room #: REG ANGEAL M.R.#: [id number] Admission: 09/06/19 Attend Phys: Geoff Mcrae MD Discharge: Date of : 43 Report #: [id number] THIS REPORT FOR: cc: Vivek Powell MD,Geoff Clements MD, MD ~ CC: Vivek Mcrae DATE OF SERVICE: 09/06/2019 Followup visit for chronic pain, management of intrathecal infusion pump and also management of high risk oral opioid analgesics under terms of written opioid agreement. The patient returns to Pain Clinic today for refill of her intrathecal pump. She was scheduled last , but I received a call my personal phone from her saying that she just felt too poorly to make it in that day. She says that her pain has been increased with the change of weather, particularly cold wet weather seems to make her worse. She has multiple pain generators, which were reviewed today. They include her back, her knee her hip. She also complains of neck pain, generalized fatigue, and malaise. She is grateful for the pain medication; both intrathecal and oral help with pain. Without it, she does not feel like she would be able to even get out of bed. Medication includes both hydromorphone and droperidol for antinausea effect in the intrathecal pump and hydrocodone. She is allowed to take up to 4 tablets a day for breakthrough. I have asked her today to minimize use of the oral medicine and I will increase her infusion by 10% by the intrathecal pump. PQRS REVIEW: 1. Significant osteoarthritis of the spine, hips, knees and hands. 2. BMI 18.8, stable. 3. Blood pressure 151/87, heart rate 85. 4. Pain intensity 5/10. 5. She is a fall risk, falling within the last 3 months. She actually fell in the parking lot, she was here to meet with the [employer] transportation services representative to retrieve a new PTM device. No injuries related to that fall. 6. She is on the blood thinner, Plavix and we discussed the importance of careful movements and stable walking as a result because of her recent fall and concern for bleeding. [address] [address] PAIN MANAGEMENT CONSULTATION Name: MALCOLMDILIAANUM Room #: [facility] [id number] Admission: 09/06/19 Attend Phys: Geoff Mcrae MD Discharge: Date of : 43 Report #: [id number] 7. Treatment for hypertension by Dr. Vivek Powell. All medications were reviewed and reconciled. 8. She is on an opioid agreement. 9. She is considered high risk for misuse and addiction. We see her back at 2-month intervals and carefully monitor with the prescription drug monitoring program information. There are no unexpected entries. 10. Functional assessment score of 42. 11. She denies use of tobacco, but is a current alcohol consumer and I have talked at great length with her and her physicians and her about limiting alcohol, particularly when using oral opioids. By: 1224 [id number] Geoff Mcrae MD /nt
--- NOTE | ~2019-09-06 | P ---
[facility] [place] [place] [address] PROCEDURE REPORT Name: ANUM VICK Room #: REG [facility] M..#: [id number] Admission: 09/06/19 Attend Phys: Geoff Mcrae MD Discharge: Date of : 43 Report #: [id number] THIS REPORT FOR: cc: Vivek Powell MD,Vivek Mcrae,Geoff Nuñez MD ~ CC: Vivek Mcrae DATE OF SERVICE: 09/06/2019 PROCEDURE: Refill and reprogramming of intrathecal infusion pump. Skin was prepped with ChloraPrep and after informed consent, a 22-gauge non-coring needle advanced in the pump. Old medication removed and discarded per protocol. Pump refilled with a combination of hydromorphone 8 mg, droperidol 250 mcg, and a reprogramming session performed with a 10% increase. Next refill was scheduled for late September with PTM device. Reprogramming information was checked and a copy given to the patient. I then checked her use of medication on the prescription drug monitoring information and confirmed electronic prescriptions to be sent for the next 2 months. She will try to limit her use of medication to the lowest effective dose and safeguard medications outlined in her agreement. By: 1224 1249 Geoff Mcrae MD /nt
[2019-09-06 11:25] VITALS: BP 151/87
--- NOTE | 2019-09-06 11:48 | NUR ---
Pain Clinic Assessment: 1. History of Osteoarthritis: Right Lower Extremity NECK History of Rheumatoid Arthritis: DENIES 2. Height: 5 ft. 3 in. 160.0 cm. Weight: 106.2 lb. oz. 48.172 kg. Patient's BMI: 18.8 3. Vital Signs: BP: 151/87 Pulse: 85 Resp: 16 Temp: 02 Sat: 97 ECG Mon: 4. Pain Intensity: 5 5. Fall Risk: Dizziness: N Needs help standing or walking: Y Fallen in the last 3 months: Y Fall risk comments: FELL IN PARKING LOT AFTER SHE ARJUN [employer] REP 6. Patient on Blood Thinner: Clopidogrel Bisulf(Plavix 7. History of Hypertension: Y 8. Opioid Therapy greater than 6 weeks: Y Opiate Contract Signed: 12/04/15 9. Risk Assessment Tool Provided: 8-HIGH RISK 10. Functional Assessment Tool: 42 11. Recreational Drug Use: Never Drug Type: Tobacco Use: Former Smoker Tobacco Type: Amount or Packs/day: How Many Years: Alcohol Use: Past use Frequency: Quant:
== END | disposition home or self-care (01) ==
LOC: PAIN 08-30 13:15
DX: Z45.1 Encounter for adjustment and management of infusion pump (principal); G89.29 Other chronic pain; I10 Essential (primary) hypertension; I25.10 Atherosclerotic heart disease of native coronary artery without angina pectoris; M19.90 Unspecified osteoarthritis, unspecified site; Z79.891 Long term (current) use of opiate analgesic; Z79.899 Other long term (current) drug therapy; Z98.890 Other specified postprocedural states; Z87.891 Personal history of nicotine dependence; Z91.041 Radiographic dye allergy status; Z88.8 Allergy status to other drugs, medicaments and biological substances

== ENCOUNTER → 2019-10-21 | Outpatient (CLI) | payer OTHER ==
[~2019-10-21] VITALS: Ht 160 cm; Wt 49.2 kg
--- NOTE | ~2019-10-21 | HPC ---
[facility] [place] [address] [address] PAIN MANAGEMENT CONSULTATION Name: ANUM VICK Room #: REG CARI M.R.#: [id number] Admission: 10/21/19 Attend Phys: Geoff Mcrae MD Discharge: Date of : 43 Report #: [id number] THIS REPORT FOR: cc: Vivek Powell MD,Vivek Mcrae,Geoff Nuñez MD ~ CC: Vivek Mcrae DATE OF SERVICE: 10/21/2019 Followup visit for management of intrathecal infusion pump with refill and reprogramming session. The patient is here today for refill of her pump. She was last seen on 09/06/2019. She also will require refill on her breakthrough hydrocodone 7.5/325. Two prescriptions were provided at her last visit. Apparently, the pharmacy disregarded the second. She uses 3-4 tablets a day for breakthrough. I would like to avoid increasing her intrathecal pump further at this time. She gets good pain relief from her medications, carefully safeguards them and we are cautiously monitoring them since she has had some issues with alcohol as well. Pain medication in the intrathecal pump is hydromorphone and combination with droperidol, which has done a nice job of controlling her nausea. PQRS review completed today, is positive for osteoarthritis. She has had joint replacement, continues to complain of some pain in her right knee. Also pain in her right hip. She has cervical spondylosis. BMI is 18.8, this is stable for her. Blood pressure 151/87, heart rate 85, respirations 16, O2 sat 95. Pain intensity 5/10. She is a fall risk and needs help standing or walking and has fallen once in the last 3 months. We talked about the importance of using a cane or assist device if she feels unstable on her feet. Strengthening exercises have been reviewed. She is on a blood thinner, Plavix and also has a history of hypertension, under treatment by her primary care physician, Dr. Vivek Powell. Her risk assessment score is high, scoring 8 for addiction. Much of this is related to her alcohol history and family history. We will continue to monitor carefully and I have been in contact with Dr. Powell about keeping close tabs on all of her medications. She has not overused them and has remained on prescription. Functional assessment score is 40/70. She reports that she has discontinued tobacco and alcohol was reviewed today. PHYSICAL EXAMINATION: GENERAL: She is pleasant, alert and oriented, does not seem overmedicated, depressed or anxious. She has difficulty moving from sitting to standing position. Her gait is frail and antalgic. ABDOMEN: She has a pump in the right lower abdomen. It is nontender. [facility] [address] [place] [address] PAIN MANAGEMENT CONSULTATION Name: NAVAFIDEANUM S Room #: REG [facility] August#: [id number] Admission: 10/21/19 Attend Phys: Geoff Mcrae MD Discharge: Date of : 43 Report #: [id number] MUSCULOSKELETAL: She has pain and tenderness throughout the cervical, thoracic and lumbar spine and decreased range of motion in all movements. Straight leg raising is positive for some radiculopathy. IMPRESSION: 1. Chronic pain with multiple pain generators. 2. Management of oral medications under opioid agreement 3. High risk medications for someone with a high ORT score. We will continue to watch carefully and follow our prescriptions on the prescription drug monitoring program information. I will contact Dr. Powell if I am concerned about any of her medication use. 4. Management of intrathecal pump with refill and reprogramming session. PROCEDURE: Skin was prepped with ChloraPrep. Skin anesthetized and a 22-gauge non-coring needle advanced in the intrathecal pump. Old medication removed and discarded per protocol. Volumes were consistent about 4 mL. The pump was then refilled with a combination of hydromorphone, droperidol and reprogramming session was performed with no changes. She does have a PTM device. Her maximum daily doses will be 3.18 mg of hydromorphone if she uses all of her PTM opportunities. This is also about 100 mcg of droperidol. A followup visit scheduled in about 45 days. I renewed her prescriptions for 2 months. We will monitor this at each visit of course with the prescription drug monitoring program. By: 1206 1449 Geoff Mcrae MD /nt
[2019-10-21 10:55] VITALS: BP 157/87
--- NOTE | 2019-10-21 11:08 | NUR ---
Pain Clinic Assessment: 1. History of Osteoarthritis: Right Lower Extremity NECK History of Rheumatoid Arthritis: DENIES 2. Height: 5 ft. 3 in. 160.0 cm. Weight: 108.4 lb. oz. 49.170 kg. Patient's BMI: 19.2 3. Vital Signs: BP: 157/87 Pulse: 74 Resp: 16 Temp: 02 Sat: 95 ECG Mon: 4. Pain Intensity: 7---8 5. Fall Risk: Dizziness: N Needs help standing or walking: Y Fallen in the last 3 months: N Fall risk comments: FELL IN PARKING LOT AFTER SHE ARJUN [employer] REP 6. Patient on Blood Thinner: Clopidogrel Bisulf(Plavix 7. History of Hypertension: Y 8. Opioid Therapy greater than 6 weeks: Y Opiate Contract Signed: 12/04/15 9. Risk Assessment Tool Provided: 8-HIGH RISK 10. Functional Assessment Tool: 11. Recreational Drug Use: Never Drug Type: Tobacco Use: Former Smoker Tobacco Type: Amount or Packs/day: How Many Years: Alcohol Use: Past use Frequency: Quant:
== END | disposition home or self-care (01) ==
LOC: PAIN 07:21
DX: Z45.1 Encounter for adjustment and management of infusion pump (principal); G89.29 Other chronic pain; I10 Essential (primary) hypertension; I25.10 Atherosclerotic heart disease of native coronary artery without angina pectoris; Z79.891 Long term (current) use of opiate analgesic; Z96.651 Presence of right artificial knee joint; Z98.890 Other specified postprocedural states; Z79.899 Other long term (current) drug therapy; Z91.041 Radiographic dye allergy status

== ENCOUNTER → 2019-12-13 | Outpatient (CLI) | payer OTHER | LOC: SJCVCIMAG 10-19 10:37 | PROVIDERS: ATTEND Internal Medicine Cardiovascular Disease | DX: I49.3 Ventricular premature depolarization (principal); I25.10 Atherosclerotic heart disease of native coronary artery without angina pectoris; I10 Essential (primary) hypertension; E78.5 Hyperlipidemia, unspecified; K21.9 Gastro-esophageal reflux disease without esophagitis; E78.00 Pure hypercholesterolemia, unspecified; F17.200 Nicotine dependence, unspecified, uncomplicated; Z79.899 Other long term (current) drug therapy; Z91.012 Allergy to eggs; Z91.041 Radiographic dye allergy status; Z91.018 Allergy to other foods; Z98.61 Coronary angioplasty status; Z82.49 Family history of ischemic heart disease and other diseases of the circulatory system ==

== ENCOUNTER → 2019-12-13 | Outpatient (CLI) | payer OTHER ==
[~2019-12-13] VITALS: Ht 160 cm; Wt 48.5 kg
[2019-12-13 15:32] VITALS: BP 133/77
--- NOTE | 2019-12-13 15:46 | NUR ---
Pain Clinic Assessment: 1. History of Osteoarthritis: Right Lower Extremity NECK History of Rheumatoid Arthritis: DENIES 2. Height: 5 ft. 3 in. 160.0 cm. Weight: 107.0 lb. oz. 48.535 kg. Patient's BMI: 19.0 3. Vital Signs: BP: 133/77 Pulse: 84 Resp: 16 Temp: 02 Sat: 97 ECG Mon: 4. Pain Intensity: 7 5. Fall Risk: Dizziness: N Needs help standing or walking: N Fallen in the last 3 months: Y Fall risk comments: FELL IN PARKING LOT AFTER SHE ARJUN [employer] REP 6. Patient on Blood Thinner: Clopidogrel Bisulf(Plavix 7. History of Hypertension: Y 8. Opioid Therapy greater than 6 weeks: Y Opiate Contract Signed: 12/04/15 9. Risk Assessment Tool Provided: 8-HIGH RISK 10. Functional Assessment Tool: 42/ 11. Recreational Drug Use: Never Drug Type: Tobacco Use: Former Smoker Tobacco Type: Amount or Packs/day: How Many Years: Alcohol Use: Past use Frequency: Quant:
--- NOTE | 2019-12-17 15:51 | HPC ---
[facility] [place] [address] [place] [address] PAIN MANAGEMENT CONSULTATION Name: ANUM VICK Room #: REG CARI Kidd.Darshan.#: [id number] Admission: 12/13/19 Attend Phys: Geoff Mcrae MD Discharge: Date of : 43 Report #: [id number] THIS REPORT FOR: cc: Soumya Powell MD,Soumya Mcrae,Geoff Nuñez MD ~ CC: SOUMYA Mcrae DATE OF SERVICE: 12/13/2019 Followup visit for chronic pain and management of intrathecal and oral opioids. The patient returns to pain clinic today for refill of her pump, which was last filled on 10/21/2019. There have been no significant changes in her health history over the course of the last several weeks. She reports her pain is in its usual state of management, which is adequate for her. She does not request an increase. PQRS: 1. Chronic arthritis. She is unhappy with a joint replacement. She has spondylosis of the cervical and lumbar spine. BMI is 19.0 and stable. She weighs as a pre-frail. Blood pressure 133/77, heart rate 84, respirations 16, and O2 sat 97. Dr. Soumya Powell manages her hypertension. All medications were reviewed and reconciled. She is also on Plavix. She did fall in the parking lot, but did not injure herself. No x-rays were performed. She is a fall risk because of her frail nature. She is on opioid agreement, which was reviewed and she safeguards her medication. She is at high risk for addiction and we will keep a monitor on her medications. She has not overused her medication. In fact, has used it less frequently over the course of the last 6 months for breakthrough and relying on her intrathecal pump. She continues to use alcohol and her alcoholic activities have been a concern. Combinations of pain medications with alcohol, I believe have led to injury and I have discussed this at length with her primary care physician, Dr. Soumya Powell. She has limited her alcohol consumption. IMPRESSION: 1. Chronic intractable pain with multiple pain generators. Post-laminectomy syndrome and osteoarthritis, chronic cervicalgia, status post anterior cervical discectomy and fusion and chronic abdominal pain. 2. Management of intrathecal infusion pump with refill and reprogramming. 3. Management of oral medications, [place] 7.5 #one tablet q. 6 hours as needed for breakthrough pain. PROCEDURE: Refill and reprogramming pump. The pump was prepped with ChloraPrep [address] [address] PAIN MANAGEMENT CONSULTATION Name: ANUM VICK Room #: REG [facility].#: [id number] Admission: 12/13/19 Attend Phys: Geoff Mcrae MD Discharge: Date of : 43 Report #: [id number] and a 22-gauge non-coring needle advanced in pump. Old medication removed and discarded. Pump was then refilled with droperidol and hydromorphone, solution and a reprogramming session was performed with no increase. Old medications were discarded per protocol. Followup visit is planned in 2-3 months. <ELECTRONICALLY SIGNED> By: Geoff Mcrae MD 12/17/19 1551 1828 [id number] Geoff Mcrae MD /nt
== END | disposition home or self-care (01) ==
LOC: PAIN 11-29 07:06
PROVIDERS: ATTEND Anesthesiology Pain Medicine
DX: Z45.1 Encounter for adjustment and management of infusion pump (principal); G89.29 Other chronic pain; M96.1 Postlaminectomy syndrome, not elsewhere classified; M54.2 Cervicalgia; M19.90 Unspecified osteoarthritis, unspecified site; R10.9 Unspecified abdominal pain; I10 Essential (primary) hypertension; Z98.890 Other specified postprocedural states; Z79.899 Other long term (current) drug therapy; Z87.891 Personal history of nicotine dependence; Z79.891 Long term (current) use of opiate analgesic; Z91.041 Radiographic dye allergy status; Z88.8 Allergy status to other drugs, medicaments and biological substances

== ENCOUNTER → 2020-02-10 | Outpatient (CLI) | payer OTHER ==
[~2020-02-10] VITALS: Ht 160 cm; Wt 47.7 kg
[2020-02-10 10:38] LABS: CREATININE 0.5 mg/dL (0.6-1.0)
[2020-02-10 14:28] VITALS: BP 148/89
--- NOTE | 2020-02-10 14:51 | NUR ---
Pain Clinic Assessment: 1. History of Osteoarthritis: Right Lower Extremity NECK History of Rheumatoid Arthritis: DENIES 2. Height: 5 ft. 3 in. 160.0 cm. Weight: 105.2 lb. oz. 47.718 kg. Patient's BMI: 18.6 3. Vital Signs: BP: 148/89 Pulse: 66 Resp: 14 Temp: 02 Sat: 100 ECG Mon: 4. Pain Intensity: 7 5. Fall Risk: Dizziness: N Needs help standing or walking: Y Fallen in the last 3 months: Y Fall risk comments: FELL IN PARKING LOT AFTER SHE ARJUN [employer] REP 6. Patient on Blood Thinner: Clopidogrel Bisulf(Plavix 7. History of Hypertension: Y 8. Opioid Therapy greater than 6 weeks: Y Opiate Contract Signed: 12/04/15 9. Risk Assessment Tool Provided: 8-HIGH RISK 10. Functional Assessment Tool: 11. Recreational Drug Use: Never Drug Type: Tobacco Use: Former Smoker Tobacco Type: Amount or Packs/day: How Many Years: Alcohol Use: Past use Frequency: Quant:
--- NOTE | 2020-02-17 11:44 | HPC ---
[facility] [email or web address] [place] [address] PAIN MANAGEMENT CONSULTATION Name: ANUM VICK Room #: REG CARI Kidd.Darshan.#: [id number] Admission: 02/10/20 Attend Phys: Geoff Mcrae MD Discharge: Date of : 43 Report #: [id number] THIS REPORT FOR: cc: Vivek Powell MD,Vivek Mcrae,Geoff Nuñez MD ~ CC: MAGDALENA Mcrae DATE OF SERVICE: 02/10/2020 Follow up visit for refill of intrathecal infusion pump. The patient returns to the pain clinic today for refill of her intrathecal infusion pump. Her alarm has gone off. She has noticed some declining pain relief over the last couple of days. Most of her pain is in her back, but she also has pain in her right leg and both hips, which is chronic. Past medical history is reviewed. All medications are reviewed. I will renew her oral medications for her under terms of our agreement. PQRS review is positive for osteoarthritis of the lower extremity, status post hip replacement and fracture. She also has cervical spondylosis. She remained slender with a BMI of 18.6, blood pressure 148/89, heart rate 66, respirations 14, O2 sat 100, pain intensity 7/10. She fell recently in the parking lot after she saw a [employer] sales representative and had an adjustment. She has a spinal cord stimulator. The patient remains on Plavix, history of hypertension. She has been on opioid therapy in addition to her intrathecal medications for a number of years. Her opioid agreement was last signed in 2015, we reviewed the responsibilities and taking care of those medicines. Prescription drug monitoring program information has been checked. Urine drug screen was performed at my discretion. Functional assessment score is 42. IMPRESSION: Chronic intractable pain. PROCEDURE: Refill and reprogramming intrathecal infusion pump. Skin was prepped with ChloraPrep. A 22-gauge non-coring needle advanced in the pump. Old medication removed and discarded. Pump was then refilled with a combination of hydromorphone and droperidol. Reprogramming session was performed. PTM also included in that. Her next refill is scheduled for 03/[address] [address] PAIN MANAGEMENT CONSULTATION Name: MALCOLMDILIAFIDEANUM Dominique Room #: REG [facility].#: [id number] Admission: 02/10/20 Attend Phys: Geoff Mcrae MD Discharge: Date of : 43 Report #: [id number] assuming she uses all her PTM. We will see her back in the pain clinic in early March, late February. <ELECTRONICALLY SIGNED> By: Geoff Mcrae MD 02/17/20 1144 [id number] 1627 Geoff Mcrae MD /nt
== END | disposition home or self-care (01) ==
LOC: PAIN 09:41 → MRI 09:41
PROVIDERS: ATTEND Anesthesiology Pain Medicine
DX: Z45.1 Encounter for adjustment and management of infusion pump (principal); G89.29 Other chronic pain; I10 Essential (primary) hypertension; M19.90 Unspecified osteoarthritis, unspecified site; Z98.890 Other specified postprocedural states; Z79.899 Other long term (current) drug therapy; Z79.891 Long term (current) use of opiate analgesic

== ENCOUNTER → 2020-03-20 | Outpatient (CLI) | payer OTHER ==
[~2020-03-20] VITALS: Ht 160 cm; Wt 48.7 kg
--- NOTE | ~2020-03-20 | HPC ---
[facility] [place] [address] PAIN MANAGEMENT CONSULTATION Name: ANUM VICK Room #: REG CARI M.Darshan.#: [id number] Admission: 03/20/20 Attend Phys: Geoff Mcrae MD Discharge: Date of : 43 Report #: [id number] THIS REPORT FOR: cc: Vivek Powell MD,Vivek Mcrae,Geoff Nuñez MD ~ CC: Vivek Mcrae DATE OF SERVICE: 03/20/2020 Followup visit for chronic back pain, post-laminectomy syndrome and radiculopathy. The patient returns to the Pain Clinic for an epidural injection. She saw Dr. Chetan Orta, who after looking at her MRI and seeing the changes above her fusion and laminectomy suggested that she undergo an epidural. She has been on Plavix, but discontinued it for 7 days in anticipation of her injection. She also has an intrathecal pump, which provides continuous infusion of droperidol and hydromorphone and takes hydrocodone 7.5/325 as a supplement. She is allowed no more than 1-4 tablets a day for breakthrough pain and is cautious with it. She is having several falls last year, but we frankly discussed the combination of medication with alcohol and she continues to drink, but has had fewer falls. Her PQRS review today. It is consistent with osteoarthritis. She also has osteoporosis and history of compression fractures. BMI is 19.0, is typical of her body habitus. Blood pressure 135/81, heart rate 74, respirations 14, O2 sat 98, pain intensity 7. One fall in the last 3 months in the parking lot, more of a stumble fall. She had just seen the [employer] registered representative. Plavix discontinued for over 7 days. History of hypertension, under treatment by Dr. Powell. Opioid agreement signed on multiple occasions and reviewed. She has some high risk of addiction, so we carefully monitor her oral opioids. Functional assessment score is 35. Denies use of alcohol on our review, but we know that she drinks vodka and she also smokes cigarettes. PHYSICAL EXAMINATION: GENERAL: Very frail appearing 74-year-old. VITAL SIGNS: Blood pressure 135/81, heart rate 74, respirations 14. She walks carefully and is a bit unstable on her feet. CHEST: Clear. CARDIAC: Rhythm is regular. MUSCULOSKELETAL: Reveals scarring across the lumbar spine that extends up into the low thoracic region and down into the sacrum. She has some tenderness there. There is a palpable bony prominence on right around the spinous process [address] [address] PAIN MANAGEMENT CONSULTATION Name: ANUM VICK Room #: REG [facility].#: [id number] Admission: 03/20/20 Attend Phys: Geoff Mcrae MD Discharge: Date of : 43 Report #: [id number] of L3. Straight leg raising bilaterally is painful. It is worse on the right and follows the distribution of the upper lumbar distribution nerves. IMPRESSION: Post-laminectomy syndrome with radiculopathy. PROCEDURE: Epidural steroid injection L1-L2 under fluoroscopic guidance. She is allergic to radiographic dye, so I told her I would use a smallest amount and aspirate it after the injection that is what we did. Skin was prepped with ChloraPrep and skin anesthetized over the L1-L2 interspace. A 20-gauge Tuohy epidural needle advanced at first attempt in the epidural space. She is very shallow as would be expected, less than 2.5 cm into the epidural space. Good loss of resistance was obtained. No blood or CSF aspirated. A 0.25 of Omnipaque injected to demonstrate an epidurogram and then I aspirated what I could out of the needle. It was then followed by 3 mL of 0.25% lidocaine mixed with 60 mg of triamcinolone. She tolerated the procedure well. There were no complications. She was taken to recovery room for observation and discharged shortly after her stay. She was able to ambulate without difficulty. Followup visit planned for pump management and medication management the next month. We will evaluate the injection at that time. By: [id number] Geoff Mcrae MD /jamar
[2020-03-20 15:37] VITALS: BP 135/81
--- NOTE | 2020-03-20 15:45 | NUR ---
Pain Clinic Assessment: 1. History of Osteoarthritis: SPINE History of Rheumatoid Arthritis: Not Applicable 2. Height: 5 ft. 3 in. 160.0 cm. Weight: 107.4 lb. oz. 48.716 kg. Patient's BMI: 19.0 3. Vital Signs: BP: 135/81 Pulse: 74 Resp: 14 Temp: 02 Sat: 98 ECG Mon: 4. Pain Intensity: 7 5. Fall Risk: Dizziness: N Needs help standing or walking: N Fallen in the last 3 months: Y Fall risk comments: FELL IN PARKING LOT AFTER SHE ARJUN [employer] REP 6. Patient on Blood Thinner: Clopidogrel Bisulf(Plavix 7. History of Hypertension: Y 8. Opioid Therapy greater than 6 weeks: Y Opiate Contract Signed: 12/04/15 9. Risk Assessment Tool Provided: 8-HIGH RISK 10. Functional Assessment Tool: 35 11. Recreational Drug Use: Never Drug Type: Tobacco Use: Former Smoker Tobacco Type: Cigarettes Amount or Packs/day: How Many Years: Alcohol Use: No Frequency: Quant:
== END ==
LOC: PAIN 01-31 06:46
PROVIDERS: ATTEND Anesthesiology Pain Medicine
DX: M96.1 Postlaminectomy syndrome, not elsewhere classified (principal); M54.16 Radiculopathy, lumbar region; I25.10 Atherosclerotic heart disease of native coronary artery without angina pectoris; I10 Essential (primary) hypertension; Z79.899 Other long term (current) drug therapy; Z87.891 Personal history of nicotine dependence

== ENCOUNTER → 2020-04-06 | Outpatient (CLI) | payer OTHER ==
[~2020-04-06] VITALS: Ht 160 cm; Wt 48.3 kg
--- NOTE | ~2020-04-06 | HPC ---
[facility] [place] [address] PAIN MANAGEMENT CONSULTATION Name: ANUM VICK Room #: REG [facility]..#: [id number] Admission: 04/06/20 Attend Phys: Geoff Mcrae MD Discharge: Date of : 43 Report #: [id number] CC: Vivek Mcrae DATE OF SERVICE: 04/06/2020 Followup visit for pump refill and adjustment. The patient returns to pain clinic today for refill of her intrathecal pump, which contains hydromorphone and droperidol. She is having a rough day and weak. She is very sensitive to changes in weather and describes her pain as increasing in severity due to the weather front. She scores her pain as a 10+/10. Pain is exacerbated by walking all activity. She is having difficulty with sleeping. Her intrathecal pump can be adjusted today. I believe she is at a modest dose of her hydromorphone. This will also adjust her droperidol, which she has been tolerant to. All medications have been reviewed and reconciled. There are no unexpected entries. She does have some osteoarthritis. She has had no recent falls. Continues to drink alcohol on occasion and smoke cigarettes. Her opioid risk tool assessment is high 8 and we will oversee her medications cautiously. Her opioid agreement has been reviewed in some detail. Prescription drug monitoring shows no unexpected entries. PHYSICAL EXAMINATION: GENERAL: Very frail appearing 74-year-old. VITAL SIGNS: Blood pressure is 149/84, heart rate 84, respirations 16, O2 sat 99 on room air. She is wearing a mask due to COVID restrictions. Her pain intensity 10/10. Height 5 feet 3 106, BMI 18.9. She has diffuse pain and tenderness throughout. IMPRESSION: 1. Chronic intractable pain, multiple pain generators. 2. Management of intrathecal pump with refill and reprogramming session. PROCEDURE: After informed consent, skin was prepped with ChloraPrep and anesthetized with 1% lidocaine. A 22-gauge non-coring needle advanced in pump. Old medication removed and discarded per protocol. Pump was then refilled with a combination of hydromorphone and droperidol and an increase 10% was provided with the reprogramming session. The numbers were checked by myself and the nurse and the patient was discharged. Followup visit planned sometime around 05/20. I did tell her I would be gone during the month of May for medical leave and her next refill may be performed by one of my partners or someone else. By: [id number] Geoff Mcrae MD /nt
[2020-04-06 14:13] VITALS: BP 149/84
--- NOTE | 2020-04-06 14:25 | NUR ---
Pain Clinic Assessment: 1. History of Osteoarthritis: SPINE History of Rheumatoid Arthritis: Not Applicable 2. Height: 5 ft. 3 in. 160.0 cm. Weight: 106.4 lb. oz. 48.263 kg. Patient's BMI: 18.9 3. Vital Signs: BP: 149/84 Pulse: 84 Resp: 16 Temp: 02 Sat: 99 ECG Mon: 4. Pain Intensity: 10+ 5. Fall Risk: Dizziness: N Needs help standing or walking: N Fallen in the last 3 months: N Fall risk comments: FELL IN PARKING LOT AFTER SHE ARJUN [employer] REP 6. Patient on Blood Thinner: Clopidogrel Bisulf(Plavix 7. History of Hypertension: Y 8. Opioid Therapy greater than 6 weeks: Y Opiate Contract Signed: 12/04/15 9. Risk Assessment Tool Provided: 8-HIGH RISK 10. Functional Assessment Tool: 35/70 11. Recreational Drug Use: Never Drug Type: Tobacco Use: Former Smoker Tobacco Type: Amount or Packs/day: How Many Years: Alcohol Use: No Frequency: Quant:
== END | disposition home or self-care (01) ==
LOC: PAIN 06:46
PROVIDERS: ATTEND Anesthesiology Pain Medicine
DX: Z45.1 Encounter for adjustment and management of infusion pump (principal); G89.29 Other chronic pain; M19.90 Unspecified osteoarthritis, unspecified site; F17.210 Nicotine dependence, cigarettes, uncomplicated; Z79.891 Long term (current) use of opiate analgesic; Z98.890 Other specified postprocedural states; Z79.899 Other long term (current) drug therapy

== ENCOUNTER → 2020-05-15 | Outpatient (CLI) | payer OTHER ==
[~2020-05-15] VITALS: Ht 160 cm; Wt 49.0 kg
[2020-05-15 15:23] VITALS: BP 148/76
--- NOTE | 2020-05-15 15:25 | NUR ---
Pain Clinic Assessment: 1. History of Osteoarthritis: SPINE History of Rheumatoid Arthritis: Not Applicable 2. Height: 5 ft. 3 in. 160.0 cm. Weight: 108.0 lb. oz. 48.988 kg. Patient's BMI: 19.1 3. Vital Signs: BP: 148/76 Pulse: 73 Resp: 18 Temp: 02 Sat: 96 ECG Mon: 4. Pain Intensity: 7 5. Fall Risk: Dizziness: N Needs help standing or walking: N Fallen in the last 3 months: N Fall risk comments: FELL IN PARKING LOT AFTER SHE ARJUN [employer] REP 6. Patient on Blood Thinner: Clopidogrel Bisulf(Plavix 7. History of Hypertension: Y 8. Opioid Therapy greater than 6 weeks: Y Opiate Contract Signed: 12/04/15 9. Risk Assessment Tool Provided: 8-HIGH RISK 10. Functional Assessment Tool: 35/ 11. Recreational Drug Use: Never Drug Type: Tobacco Use: Former Smoker Tobacco Type: Amount or Packs/day: How Many Years: Alcohol Use: No Frequency: Quant:
== END | disposition home or self-care (01) ==
LOC: PAIN 06:57
PROVIDERS: ATTEND Anesthesiology Pain Medicine
DX: Z45.1 Encounter for adjustment and management of infusion pump (principal); G89.29 Other chronic pain; M54.2 Cervicalgia; M96.1 Postlaminectomy syndrome, not elsewhere classified; I10 Essential (primary) hypertension; Z98.890 Other specified postprocedural states; Z79.899 Other long term (current) drug therapy; Z79.891 Long term (current) use of opiate analgesic; Z88.8 Allergy status to other drugs, medicaments and biological substances; Z91.041 Radiographic dye allergy status

== ENCOUNTER → 2020-06-29 | Outpatient (CLI) | payer OTHER ==
[~2020-06-29] VITALS: Ht 160 cm; Wt 48.3 kg
[2020-06-29 13:19] VITALS: BP 121/67
--- NOTE | 2020-06-29 13:42 | NUR ---
Pain Clinic Assessment: 1. History of Osteoarthritis: SPINE History of Rheumatoid Arthritis: Not Applicable 2. Height: 5 ft. 3 in. 160.0 cm. Weight: 106.4 lb. oz. 48.263 kg. Patient's BMI: 18.9 3. Vital Signs: BP: 121/67 Pulse: 78 Resp: 16 Temp: 02 Sat: 95 ECG Mon: 4. Pain Intensity: 8 5. Fall Risk: Dizziness: N Needs help standing or walking: Y Fallen in the last 3 months: Y Fall risk comments: FELL IN PARKING LOT AFTER SHE ARJUN [employer] REP 6. Patient on Blood Thinner: Clopidogrel Bisulf(Plavix 7. History of Hypertension: Y 8. Opioid Therapy greater than 6 weeks: Y Opiate Contract Signed: 12/04/15 9. Risk Assessment Tool Provided: 8-HIGH RISK 10. Functional Assessment Tool: 43 11. Recreational Drug Use: Never Drug Type: Tobacco Use: Former Smoker Tobacco Type: Cigarettes Amount or Packs/day: 1 ppd How Many Years: 40 Alcohol Use: Yes Frequency: Daily Quant: 2 drinks/night
== END | disposition home or self-care (01) ==
LOC: PAIN 06-26 07:01
PROVIDERS: ATTEND Anesthesiology Pain Medicine
DX: Z45.1 Encounter for adjustment and management of infusion pump (principal); M96.1 Postlaminectomy syndrome, not elsewhere classified; M54.16 Radiculopathy, lumbar region; G89.29 Other chronic pain; I10 Essential (primary) hypertension; I25.10 Atherosclerotic heart disease of native coronary artery without angina pectoris; Z98.890 Other specified postprocedural states; Z79.899 Other long term (current) drug therapy; Z87.891 Personal history of nicotine dependence; Z88.8 Allergy status to other drugs, medicaments and biological substances; Z91.041 Radiographic dye allergy status

== ENCOUNTER → 2020-08-10 | Outpatient (CLI) | payer OTHER ==
[~2020-08-10] VITALS: Ht 160 cm; Wt 48.4 kg
[~2020-08-10] MED LIST changes: +SERTRALINE HCL100 MG PO
[2020-08-10 12:47] VITALS: BP 134/66
--- NOTE | 2020-08-10 12:57 | NUR ---
Pain Clinic Assessment: 1. History of Osteoarthritis: SPINE History of Rheumatoid Arthritis: Not Applicable 2. Height: 5 ft. 3 in. 160.0 cm. Weight: 106.8 lb. oz. 48.444 kg. Patient's BMI: 18.9 3. Vital Signs: BP: 134/66 Pulse: 71 Resp: 16 Temp: 02 Sat: 95 ECG Mon: 4. Pain Intensity: 8 5. Fall Risk: Dizziness: N Needs help standing or walking: N Fallen in the last 3 months: N Fall risk comments: FELL IN PARKING LOT AFTER SHE ARJUN [employer] REP 6. Patient on Blood Thinner: Clopidogrel Bisulf(Plavix 7. History of Hypertension: Y 8. Opioid Therapy greater than 6 weeks: Y Opiate Contract Signed: 12/04/15 9. Risk Assessment Tool Provided: 8-HIGH RISK 10. Functional Assessment Tool: 43/70 11. Recreational Drug Use: Never Drug Type: Tobacco Use: Light Tobacco Smoker Tobacco Type: Amount or Packs/day: How Many Years: Alcohol Use: Yes Frequency: Daily Quant: cocktail at night and wine with dinner
== END | disposition home or self-care (01) ==
LOC: PAIN 07:03
PROVIDERS: ATTEND Anesthesiology Pain Medicine
DX: Z45.1 Encounter for adjustment and management of infusion pump (principal); G89.29 Other chronic pain; M19.90 Unspecified osteoarthritis, unspecified site; M47.899 Other spondylosis, site unspecified; M79.18 Myalgia, other site; I10 Essential (primary) hypertension; Z98.890 Other specified postprocedural states; Z79.899 Other long term (current) drug therapy; Z91.041 Radiographic dye allergy status; Z88.8 Allergy status to other drugs, medicaments and biological substances; Z79.891 Long term (current) use of opiate analgesic

== ENCOUNTER → 2020-08-28 | Outpatient (CLI) | payer OTHER ==
[~2020-08-28] VITALS: Ht 160 cm; Wt 48.7 kg
[2020-08-28 13:17] VITALS: BP 153/80
== END | disposition home or self-care (01) ==
LOC: PAIN 06:55
PROVIDERS: ATTEND Anesthesiology Pain Medicine
DX: Z45.1 Encounter for adjustment and management of infusion pump (principal); G89.29 Other chronic pain; M47.896 Other spondylosis, lumbar region; M79.18 Myalgia, other site; M54.16 Radiculopathy, lumbar region; Z98.890 Other specified postprocedural states; Z79.899 Other long term (current) drug therapy; Z79.891 Long term (current) use of opiate analgesic; Z88.8 Allergy status to other drugs, medicaments and biological substances; Z91.040 Latex allergy status

== ENCOUNTER → 2020-09-14 | Outpatient (CLI) | payer OTHER ==
[~2020-09-14] VITALS: Ht 160 cm; Wt 50.0 kg
[2020-09-14 13:48] VITALS: BP 131/69
--- NOTE | 2020-09-14 14:04 | NUR ---
Pain Clinic Assessment: 1. History of Osteoarthritis: SPINE History of Rheumatoid Arthritis: Not Applicable 2. Height: 5 ft. 3 in. 160.0 cm. Weight: 110.2 lb. oz. 49.986 kg. Patient's BMI: 19.5 3. Vital Signs: BP: 131/69 Pulse: 70 Resp: 14 Temp: 02 Sat: 96 ECG Mon: 4. Pain Intensity: 5 5. Fall Risk: Dizziness: N Needs help standing or walking: Y Fallen in the last 3 months: N Fall risk comments: FELL IN PARKING LOT AFTER SHE ARJUN [employer] REP 6. Patient on Blood Thinner: Clopidogrel Bisulf(Plavix 7. History of Hypertension: Y 8. Opioid Therapy greater than 6 weeks: Y Opiate Contract Signed: 12/04/15 9. Risk Assessment Tool Provided: 8-HIGH RISK 10. Functional Assessment Tool: 11. Recreational Drug Use: Never Drug Type: Tobacco Use: Light Tobacco Smoker Tobacco Type: Amount or Packs/day: How Many Years: Alcohol Use: Yes Frequency: Daily Quant: 1
== END | disposition home or self-care (01) ==
LOC: PAIN 06:53
PROVIDERS: ATTEND Anesthesiology Pain Medicine
DX: Z45.1 Encounter for adjustment and management of infusion pump (principal); G89.29 Other chronic pain; M54.9 Dorsalgia, unspecified; M47.26 Other spondylosis with radiculopathy, lumbar region; I10 Essential (primary) hypertension; F17.210 Nicotine dependence, cigarettes, uncomplicated; Z98.890 Other specified postprocedural states; Z79.899 Other long term (current) drug therapy; Z79.891 Long term (current) use of opiate analgesic; Z88.8 Allergy status to other drugs, medicaments and biological substances

== ENCOUNTER → 2020-10-19 | Outpatient (CLI) | payer OTHER ==
[~2020-10-19] VITALS: Ht 160 cm; Wt 49.8 kg
[2020-10-19 15:12] VITALS: BP 121/71
--- NOTE | 2020-10-19 15:31 | NUR ---
Pain Clinic Assessment: 1. History of Osteoarthritis: SPINE History of Rheumatoid Arthritis: Not Applicable 2. Height: 5 ft. 3 in. 160.0 cm. Weight: 109.8 lb. oz. 49.805 kg. Patient's BMI: 19.5 3. Vital Signs: BP: 121/71 Pulse: 78 Resp: 16 Temp: 02 Sat: 97 ECG Mon: 4. Pain Intensity: 5 5. Fall Risk: Dizziness: N Needs help standing or walking: N Fallen in the last 3 months: N Fall risk comments: FELL IN PARKING LOT AFTER SHE ARJUN [employer] REP 6. Patient on Blood Thinner: Clopidogrel Bisulf(Plavix 7. History of Hypertension: Y 8. Opioid Therapy greater than 6 weeks: Y Opiate Contract Signed: 12/04/15 9. Risk Assessment Tool Provided: 8-HIGH RISK 10. Functional Assessment Tool: 11. Recreational Drug Use: Never Drug Type: Tobacco Use: Light Tobacco Smoker Tobacco Type: Amount or Packs/day: How Many Years: Alcohol Use: Yes Frequency: Quant:
== END | disposition home or self-care (01) ==
LOC: PAIN 13:13
PROVIDERS: ATTEND Anesthesiology Pain Medicine
DX: Z45.1 Encounter for adjustment and management of infusion pump (principal); G89.29 Other chronic pain; M54.16 Radiculopathy, lumbar region; M79.18 Myalgia, other site; I10 Essential (primary) hypertension; F17.210 Nicotine dependence, cigarettes, uncomplicated; Z98.890 Other specified postprocedural states; Z79.899 Other long term (current) drug therapy; Z79.891 Long term (current) use of opiate analgesic; Z88.8 Allergy status to other drugs, medicaments and biological substances; Z91.041 Radiographic dye allergy status

== ENCOUNTER → 2020-11-27 | Outpatient (CLI) | payer OTHER | LOC: SJCVCIMAG 08:21 | PROVIDERS: ATTEND Internal Medicine Cardiovascular Disease | DX: I08.0 Rheumatic disorders of both mitral and aortic valves (principal); R06.00 Dyspnea, unspecified; I25.10 Atherosclerotic heart disease of native coronary artery without angina pectoris; I10 Essential (primary) hypertension ==

== ENCOUNTER → 2021-03-12 | Outpatient (CLI) | payer OTHER ==
[~2021-03-12] VITALS: Ht 160 cm; Wt 53.8 kg
[2021-03-12 10:59] VITALS: BP 100/70
== END | disposition home or self-care (01) ==
LOC: PAIN 12-26 09:52
PROVIDERS: ATTEND Anesthesiology Pain Medicine
DX: Z45.1 Encounter for adjustment and management of infusion pump (principal); G89.29 Other chronic pain; M96.1 Postlaminectomy syndrome, not elsewhere classified; M54.5 Low back pain; M54.9 Dorsalgia, unspecified; Z91.041 Radiographic dye allergy status; I25.10 Atherosclerotic heart disease of native coronary artery without angina pectoris; Z79.891 Long term (current) use of opiate analgesic; Z98.890 Other specified postprocedural states; Z79.899 Other long term (current) drug therapy; Z88.8 Allergy status to other drugs, medicaments and biological substances; I10 Essential (primary) hypertension

== ENCOUNTER → 2021-05-24 | Outpatient (CLI) | payer OTHER ==
[~2021-05-24] VITALS: Ht 160 cm; Wt 50.5 kg
[2021-05-24 12:58] VITALS: BP 129/87
--- NOTE | 2021-05-24 13:10 | NUR ---
Pain Clinic Assessment: 1. History of Osteoarthritis: SPINE History of Rheumatoid Arthritis: Not Applicable 2. Height: 5 ft. 3 in. 160.0 cm. Weight: 111.4 lb. oz. 50.531 kg. Patient's BMI: 19.7 3. Vital Signs: BP: 129/87 Pulse: 94 Resp: 16 Temp: 02 Sat: 97 ECG Mon: 4. Pain Intensity: 9 5. Fall Risk: Dizziness: Y Needs help standing or walking: Y Fallen in the last 3 months: Y Fall risk comments: FELL IN PARKING LOT AFTER SHE ARJUN [employer] REP 6. Patient on Blood Thinner: None 7. History of Hypertension: Y 8. Opioid Therapy greater than 6 weeks: Y Opiate Contract Signed: 12/04/15 9. Risk Assessment Tool Provided: 8-HIGH RISK 10. Functional Assessment Tool: 11. Recreational Drug Use: Never Drug Type: Tobacco Use: Light Tobacco Smoker Tobacco Type: Cigarettes Amount or Packs/day: 1 CIG/D How Many Years: Alcohol Use: Yes Frequency: Daily Quant: 1
== END | disposition home or self-care (01) ==
LOC: PAIN 11:02
PROVIDERS: ATTEND Anesthesiology Pain Medicine
DX: Z45.1 Encounter for adjustment and management of infusion pump (principal); G89.29 Other chronic pain; M54.59 Other low back pain; M54.2 Cervicalgia; M96.1 Postlaminectomy syndrome, not elsewhere classified; I10 Essential (primary) hypertension; F17.210 Nicotine dependence, cigarettes, uncomplicated; Z98.890 Other specified postprocedural states; Z79.899 Other long term (current) drug therapy; Z79.891 Long term (current) use of opiate analgesic

== ENCOUNTER → 2021-08-16 | Outpatient (CLI) | payer OTHER ==
[~2021-08-16] VITALS: Ht 160 cm; Wt 47.0 kg
[2021-08-16 14:08] VITALS: BP 167/105
--- NOTE | 2021-08-16 14:17 | NUR ---
Pain Clinic Assessment: 1. History of Osteoarthritis: SPINE History of Rheumatoid Arthritis: Not Applicable 2. Height: 5 ft. 3 in. 160.0 cm. Weight: 103.6 lb. oz. 46.992 kg. Patient's BMI: 18.4 3. Vital Signs: BP: 167/105 Pulse: 89 Resp: 14 Temp: 02 Sat: 99 ECG Mon: 4. Pain Intensity: 8 5. Fall Risk: Dizziness: Y Needs help standing or walking: Y Fallen in the last 3 months: Y Fall risk comments: FELL IN PARKING LOT AFTER SHE ARJUN [employer] REP 6. Patient on Blood Thinner: Clopidogrel Bisulf(Plavix 7. History of Hypertension: Y 8. Opioid Therapy greater than 6 weeks: Y Opiate Contract Signed: 12/04/15 9. Risk Assessment Tool Provided: 8-HIGH RISK 10. Functional Assessment Tool: 11. Recreational Drug Use: Never Drug Type: Tobacco Use: Former Smoker Tobacco Type: Amount or Packs/day: How Many Years: Alcohol Use: Yes Frequency: Daily Quant: 1
== END | disposition home or self-care (01) ==
LOC: PAIN 07-30 13:07
PROVIDERS: ATTEND Anesthesiology Pain Medicine
DX: Z45.1 Encounter for adjustment and management of infusion pump (principal); G89.29 Other chronic pain; M96.1 Postlaminectomy syndrome, not elsewhere classified; I10 Essential (primary) hypertension; I25.10 Atherosclerotic heart disease of native coronary artery without angina pectoris; Z98.890 Other specified postprocedural states; Z79.899 Other long term (current) drug therapy; Z87.891 Personal history of nicotine dependence; Z91.041 Radiographic dye allergy status; Z88.8 Allergy status to other drugs, medicaments and biological substances